=== PATIENT | male | born 1940 | race Caucasian/White ===

== ENCOUNTER 2017-06-23 14:25 | Inpatient (IN) ==
--- OUTSIDE RECORDS SUMMARY | 2017-06-23 15:50 | External Medical Summary | Summary of Care ---
:1940 Author Name Bryant Mena M.D. Address [address] [place] [address] Care Team Providers Name Role Phone Rajesh Carranza, Bryant Unavailable Unavailable Antonio Hirsch Primary Care Provider Unavailable Functional Status Functional Status Health Issues Name Dates Details Functional status health issues are not documented Status: Cognitive Status Health Issues Name Dates Details Cognitive status health issues are not documented Status: Problems Name Dates Details Elevated PSA (790.93, R97.2) Status: Active BPH with obstruction/lower urinary tract symptoms (600.01, N40.1) Status: Active Peyronie disease (607.85, N48.6) Status: Active Medications Name Dates Details Calcium 500 MG Oral Tablet TAKE 1 TABLET DAILY. Refills: 0 Bryant Mena M.D. Started 13-Aug-2015 ActiveCephalexin 500 MG Oral Capsule TAKE 1 CAPSULE 3 TIMES DAILY. Refills: 0 Started 13-Aug-2015 ActiveDialyvite Vitamin D 5000 5000 UNIT Oral Capsule TAKE DIRECTED. Refills: 0 Started 13-Aug-2015 ActiveFlaxseed Oil 1000 MG Oral Capsule TAKE DIRECTED. Refills: 0 Started 13-Aug-2015 ActiveCranberry Concentrate 500 MG Oral Capsule TAKE DIRECTED. Refills: 0 Started 13-Aug-2015 ActiveMagnesium 200 MG Oral Tablet TAKE 1 TABLET DAILY DIRECTED. Refills: 0 Started 13-Aug-2015 ActiveLantus 100 UNIT/ML Subcutaneous Solution INJECT SUBCUTANEOUSLY DIRECTED. Refills: 0 Started 13-Aug-2015 ActiveVitamin C 500 MG Oral Capsule TAKE 1 CAPSULE DAILY. Refills: 0 Started 13-Aug-2015 ActiveAspirin 81 MG Oral Tablet TAKE 1 TABLET DAILY. Refills: 0 Bryant Mena M.D. Started 16-Oct-2015 ActiveProsteon Oral Tablet TAKE 1 TABLET DAILY. Refills: 0 Bryant Mena M.D. Started 16-Oct-2015 Active Allergies and Adverse Reactions Name Dates Details No Known Drug Allergies Status: Active House Dust Status: Active Pollen Status: Active Past Medical History Name Dates Details History of Calcium oxalate crystals in urine (791.9, R82.99) Status: Resolved History of diabetes mellitus (V12.29, Z86.39) Status: Resolved History of malignant neoplasm of pancreas (V10.09, Z85.07) Status: Resolved History of measles (V12.09, Z86.19) Status: Resolved History of mumps (V12.09, Z86.19) Status: Resolved Procedures Procedure Dates Details History of Cholecystectomy History of Proximal Subtotal Pancreatectomy (Whipple Procedure) History of Tonsillectomy PSA ( PROSTATE SPECIFIC ANTIGEN) 3100 Ordered:16-Oct-2015 PSA (Reflex To Free) [id number] Ordered:16-Oct-2015 Immunization Name Dates Details Immunizations not documented Family History Father Name Dates Details Family history of malignant neoplasm of prostate (V16.42, Z80.42) Status: Active Family history of cardiac disorder (V17.49, Z82.49) Status: Active Social History Name Dates Details Smoking StatusNever smoker Vital Signs Date Test Result Details 16-Oct-2015 13:07 BP Systolic 129 mm[Hg] Status: BP Diastolic 70 mm[Hg] Status: Heart Rate 62 /min Status: Height 66 in Status: Weight 145 lb Status: Body Mass Index Calculated 23.4 kg/m2 Status: Body Surface Area Calculated 1.74 m2 Status: Results Date Description Value Details Results not documented Plan of Care Planned Observations Name Dates Details Planned Goals not documented Goal Planned Encounters Appointment; Provider: Bryant Mena On 21-Oct-2016 13:15 Instructions Instructions not documented Encounters Appointment; Bryant Mena On 16-Oct-2015 Encounter Diagnosis: Problem not documented 13:00
--- OUTSIDE RECORDS SUMMARY | 2017-06-23 15:50 | External Medical Summary ---
:1940 Author Organization [employer] Care Team Providers Name Role Phone Antonio Hirsch Provider Role Unavailable Allergies No Known Allergies Problems Problem Type Condition ICD-9 Code Onset Dates Condition Status Assessment Diabetes Mellitus Type 2, not 250.00 Active stated as uncontrolled Problem Diabetes Mellitus Type 2, not 250.00 Active stated as uncontrolled Medications Medication Code System Code Instructions Start Date End Date Status Dosage Vitamin C [facility] 33237-873 500 MG Orally not defined 09 Lantus [facility] 01853-030 100 UNIT/ML 20 units 0-33 Subcutaneous Once a day Prosteon [facility] 51148-940 Orally not defined 02 Vitamin D-3 [facility] 58216-523 5000 UNIT Orally not defined 8-40 Magnesium [facility] 50168-987 200 MG Orally 2 tablets 11 [place] [address] 405 MG Orally not defined 24 Calcium [facility] 43768-337 600-200 MG-UNIT not defined 22 Orally Procedures Procedure Coding System Code Date TSH CPT-4 73244 March 04, 2015 VITAMIN D125 DIHYDROXY CPT-4 66273 March 04, 2015 COMPLETE CBC W/AUTO DIFF WBC CPT-4 25780 March 04, 2015 Results No Known Results Summary Purpose [employer]ClinicalWorks Submission
--- OUTSIDE RECORDS SUMMARY | 2017-06-23 15:50 | External Medical Summary ---
:1940 Author Organization [employer] Care Team Providers Name Role Phone Antonio Hirsch Provider Role Unavailable Allergies No Known Allergies Problems Problem Type Condition Code Onset Dates Condition Status Problem Hyperlipidemia, unspecified E78.5 Active Problem Unspecified anemia 285.9 Active Problem Type 2 diabetes mellitus without E11.9 Active complications Problem Mixed hyperlipidemia 272.2 Active Problem Diabetes Mellitus Type 2, not stated 250.00 Active as uncontrolled Medications No Known Medications Results No Known Results Summary Purpose [employer] Submission
--- OUTSIDE RECORDS SUMMARY | 2017-06-23 15:50 | External Medical Summary ---
:1940 Author Organization [employer] Care Team Providers Name Role Phone Antonio Hirsch Provider Role Unavailable Allergies No Known Allergies Problems Problem Type Condition Code Onset Dates Condition Status Problem Hyperlipidemia, unspecified E78.5 Active Problem Unspecified anemia 285.9 Active Problem Type 2 diabetes mellitus without E11.9 Active complications Assessment Type 2 diabetes mellitus without E11.9 Active complications Problem Mixed hyperlipidemia 272.2 Active Problem Diabetes Mellitus Type 2, not stated 250.00 Active as uncontrolled Medications Medication Code Code Instructions Start End Date Status [place] [address]-59 Orally not defined 002 Calcium NDC 57683-51 600-200 MG-UNIT not defined 122 Orally Cranberry NDC [address]-43 405 MG Orally not defined 224 Lancet Devices ND 0 1 three times December 15, as directed daily. DX: E11.9 2016 to check blood sugar Vitamin D-3 NDC 49925-78 5000 UNIT Orally not defined 78-40 Vitamin C NDC 93160-05 500 MG Orally not defined 509 [place] [address]-36 100U/ML INJECT 20 20-33 UNITS SUB-Q ONCE A DAY. DISCARD VIAL FOLLOWING 28 DAYS OF USE. Magnesium NDC 92006-10 200 MG Orally 2 tablets 611 [place] [address]-36 1 use three November 12, as directed Lancets 86-21 times per day to 2016 check blood sugar, DX: E11.9 [place] [address]-70 100 UNIT/ML 20 units 20-33 Subcutaneous Once a day Procedures Procedure Coding System Code Date URINALYSIS WITH MICROSCOPIC CPT-4 31330 March 19, 2016 COMPLETE CBC W/AUTO DIFF WBC CPT-4 19487 March 19, 2016 HEMOGLOBIN A1C, IN HOUSE CPT-4 33086 March 19, 2016 [facility] MicroAlb/Creat Ratio, Urine CPT-4 18510 March 19, 2016 [facility] MicroAlb/Creat Ratio, Urine CPT-4 20626 March 19, 2016 [facility] LIPID PANEL CPT-4 48587 March 19, 2016 I[facility] CMP CPT-4 50752 March 19, 2016 Results No Known Results Summary Purpose [employer] Submission
--- OUTSIDE RECORDS SUMMARY | 2017-06-23 15:50 | External Medical Summary | Summary of Care ---
:1940 Author Name Bryant Mena M.D. Address [address] [place] [address] Care Team Providers Name Role Phone Rajesh [...] ANTIGEN) 3100 Ordered:16-Oct-2015 PSA (Reflex To Free) [id number] Ordered:16-Oct-2015 Immunization Name Dates Details Immunizations not [...]
--- OUTSIDE RECORDS SUMMARY | 2017-06-23 15:50 | External Medical Summary ---
:1940 Author Organization [employer] Care Team Providers Name Role Phone Antonio Hirsch Provider Role Unavailable Allergies, Adverse Reactions, Alerts Substance Reaction Event Type grass pollen Info Not Available Non Drug Allergy Newspaper Info Not Available Non Drug Allergy dust runny nose Non Drug Allergy Problems Problem Type Condition Code Onset Dates Condition Status Assessment Abnormal results of liver function R94.5 Active studies Assessment Enlarged prostate with lower urinary N40.1 Active tract symptoms Problem Type 2 diabetes mellitus without E11.9 Active complications Problem Hyperlipidemia, unspecified E78.5 Active Problem Type 2 diabetes mellitus with E11.65 Active hyperglycemia Problem Diabetes Mellitus Type 2, not stated 250.00 Active as uncontrolled Assessment Type 2 diabetes mellitus with E11.65 Active hyperglycemia Problem Unspecified anemia 285.9 Active Problem Mixed hyperlipidemia 272.2 Active Medications Medication Code Code Instructions Start End Date Status Dosage System Date Lancet Devices NDC 0 1 three times December 15, as directed daily. DX: E11.9 2016 [place] [address]-38 200 MG Orally 2 tablets 611 [place] [address]-05 1 use three November 12, as directed Lancets 86-21 times per day to 2016 check blood sugar, DX: E11.9 [place] [address]-49 100 UNIT/ML 20 units 20-33 [place] [address]-40 Orally not defined 002 [place] [address] 405 MG Orally not [place] 224 [place] [address]-82 600-200 MG-UNIT not defined 122 [place] [address]-25 500 MG Orally not defined 509 Procedures Procedure Coding System Code Date OFFICE VISIT, EST-LOW COMPLEXITY (15 MIN.) CPT-4 41116 May 07, 2016 [facility] visit Established Patient CPT-4 G0467 May 07, 2016 Vital Signs Date/Time: May 07, 2016 Temperature 98.2 F Height 66.5 in Weight 141.12 lbs Blood Pressure Diastolic 60 mm Hg Blood Pressure Systolic 122 mm Hg Cardiac Monitoring Heart Rate 66 /min BMI 22.43 Index Oximetry 97 % Results No Known Results Summary Purpose eClinicalWorks Submission
--- OUTSIDE RECORDS SUMMARY | 2017-06-23 15:50 | External Medical Summary ---
[...] Date End Date Status Dosage Vitamin C [facility] [place] [address] 500 MG Orally not defined 09 Lantus [facility] [place] 68397-419 100 UNIT/ML 20 units 0-33 Subcutaneous Once a day Prosteon [facility] [place] [address]-671 Orally not defined 02 Vitamin D-3 [facility] [place] [address]-979 5000 UNIT Orally not defined 8-40 Magnesium [facility] [place] [address]-662 200 MG Orally 2 tablets 11 [place] [address] 405 MG Orally not defined 24 Calcium [facility] [place] 69[address]-700 600-200 MG-UNIT not defined 22 Orally Procedures Procedure Coding System Code Date TSH CPT-4 80930 March 04, 2015 VITAMIN D125 DIHYDROXY CPT-4 52443 March 04, 2015 COMPLETE CBC W/AUTO DIFF WBC CPT-4 45686 March 04, 2015 Results No Known Results Summary Purpose eClinicalWorks Submission
--- OUTSIDE RECORDS SUMMARY | 2017-06-23 15:50 | External Medical Summary | Summary of Care ---
:1940 Author Name Bryant Mena M.D. Address [address] [place] [address] Care Team Providers Name Role Phone Rajesh Carranza, Bryant Unavailable Unavailable Antonio Hirsch Unavailable Unavailable Unavailable Unavailable Unavailable Functional Status Functional Status Health Issues Name Dates Details Functional status health issues are not documented Status: Cognitive Status Health Issues Name Dates Details Cognitive status health issues are not documented Status: Problems Name Dates Details Peyronie disease (607.85, N48.6) Status: Active BPH with obstruction/lower urinary tract symptoms (600.01, N40.1) Status: Active Elevated PSA (790.93, R97.20) Status: Active Medications Name Dates Details Calcium 500 MG TABS TAKE 1 TABLET DAILY. Refills: 0 Cho M.D., Bryant Start 13-Aug-2015 Active Dialyvite Vitamin D 5000 5000 UNIT Oral Capsule TAKE DIRECTED. Refills: 0 Start 13-Aug-2015 Active Flaxseed Oil 1000 MG Oral Capsule TAKE DIRECTED. Refills: 0 Start 13-Aug-2015 Active Cranberry Concentrate 500 MG Oral Capsule TAKE DIRECTED. Refills: 0 Start 13-Aug-2015 Active Magnesium 200 MG Oral Tablet TAKE 1 TABLET DAILY DIRECTED. Refills: 0 Start 13-Aug-2015 Active Lantus 100 UNIT/ML Subcutaneous Solution INJECT SUBCUTANEOUSLY DIRECTED. Refills: 0 Start 13-Aug-2015 Active Vitamin C 500 MG Oral Capsule TAKE 1 CAPSULE DAILY. Refills: 0 Start 13-Aug-2015 Active Aspirin 81 MG TABS TAKE 1 TABLET DAILY. Refills: 0 Cho M.D., Bryant Start -Oct-2015 Active Prosteon Oral Tablet TAKE 1 TABLET DAILY. Refills: 0 Cho M.D., Bryant Start 16-Oct-2015 Active Allergies and Adverse Reactions Name Dates Details No Known Drug Allergies (Allergy) Status: Active House Dust (Allergy) Status: Active Pollen (Allergy) Status: Active Past Medical History Name Dates [...] Subtotal Pancreatectomy (Whipple Procedure) History of Tonsillectomy Procedures not documented Immunization Name Dates Details Immunizations not documented Family History Father Name Dates Details Family history of cardiac disorder (V17.49, Z82.49) Status: Active Family history of malignant neoplasm of prostate (V16.42, Z80.42) Status: Active Social History Name Dates Details - Status: Smoking Status Name Dates Details Never smoker Vital Signs Date Test Result Details 21-Oct-2016 13:23 BP Systolic 127 mm[Hg] Status: Comments: Location: ; Position: BP Diastolic 72 mm[Hg] Status: Comments: Location: ; Position: Heart Rate 67 /min Status: Comments: Location: ; Results Date Description Value Details Results not documented Plan of Care Name Dates Details Planned Observations Planned Goals not documented Planned Encounters Appointment; Provider: Bryant Mena M.D. On 26-Oct-2018 13:30 Instructions Name Dates Details Instructions not documented Encounters Appointment; Bryant Mena M.D. On 16-Oct-2015 Encounter Diagnosis: Problem not documented 13:00
--- OUTSIDE RECORDS SUMMARY | 2017-06-23 15:50 | External Medical Summary ---
:1940 Author Organization eClinicalWorks Care Team Providers Name Role Phone Antonio Hirsch Provider Role Unavailable Allergies, Adverse Reactions, Alerts Substance Reaction Event Type grass pollen Info Not Available Non Drug Allergy Newspaper Info Not Available Non Drug Allergy dust runny nose Non Drug Allergy Problems Problem Type Condition ICD-9 Code Onset Dates Condition Status Problem Mixed hyperlipidemia 272.2 Active Problem Diabetes Mellitus Type 2, not 250.00 Active stated as uncontrolled Problem Unspecified anemia 285.9 Active Assessment Mixed hyperlipidemia 272.2 Active Assessment Unspecified anemia 285.9 Active Assessment Diabetes Mellitus Type 2, not 250.00 Active stated as uncontrolled Medications Medication Code System Code Instructions Start Date End Date Status Dosage Calcium [facility] 42089-269 600-200 MG-UNIT not defined 22 Orally Vitamin D-[address] [facility] 586[address]-701 5000 UNIT Orally not defined 8-[address] [facility] 33882-850 200 MG Orally 2 tablets 11 Once a day with a meal Prosteon [facility] 65592-887 Orally not defined [address] [facility] 78333-601 100 UNIT/ML 20 units 0-33 Subcutaneous Once a day Vitamin C [facility] 14[address]-062 500 MG Orally not defined 09 [place] [address] 405 MG Orally not defined 24 Procedures Procedure Coding System Code Date OFFICE VISIT, EST-LOW COMPLEXITY (15 MIN.) CPT-4 43321 March 07, 2015 [facility] visit Established Patient CPT-4 G0467 March 07, 2015 Vital Signs Date/Time: March 07, 2015 Height 66.5 in Weight 141.12 lbs Temperature 98.4 F Blood Pressure Diastolic 80 mm Hg Blood Pressure Systolic 120 mm Hg Cardiac Monitoring Heart Rate 66 /min BMI 22.43 Index Oximetry 96 % Respiratory Rate 16 /min Results No Known Results Summary Purpose eClinicalWorks Submission
--- OUTSIDE RECORDS SUMMARY | 2017-06-23 15:50 | External Medical Summary ---
:1940 Author Organization eClinicalWorks Care Team Providers Name Role Phone Antonio Hirsch Provider Role Unavailable Allergies No Known Allergies Problems Problem Type Condition Code Onset Dates Condition Status Problem Mixed hyperlipidemia 272.2 Active Problem Diabetes Mellitus Type 2, not stated 250.00 Active as uncontrolled Problem Unspecified anemia 285.9 Active Assessment Unspecified anemia 285.9 Active Medications Medication Code System Code Instructions Start Date End Date Status Dosage Cranberry [facility] [address]-904 405 MG Orally not defined 24 [place] [address]-163 5000 UNIT Orally not defined 8-40 Prosteon [facility] 45086-437 Orally not defined 02 Vitamin C [facility] 34231-302 500 MG Orally not defined 09 Magnesium [facility] 22421-077 200 MG Orally 2 tablets 11 Once a day with a meal Lantus [facility] 01077-713 100 UNIT/ML 20 units 0-33 Subcutaneous Once a day Calcium [facility] 71295-962 600-200 MG-UNIT not defined 22 Orally Procedures Procedure Coding System Code Date MicroAlb/Creat Ratio, Urine CPT-4 17448 Sep 02, 2015 MicroAlb/Creat Ratio, Urine CPT-4 63623 Sep 02, 2015 HEMOGLOBIN A1C, IN HOUSE CPT-4 18931 Sep 02, 2015 LIPID PANEL CPT-4 85562 Sep 02, 2015 CMP CPT-4 21592 Sep 02, 2015 Results No Known Results Summary Purpose [employer]ClinicalWorks Submission
--- OUTSIDE RECORDS SUMMARY | 2017-06-23 15:50 | External Medical Summary ---
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 DX E11.9 Aspirin NDC 52310-51 81 MG Orally 1 tablet 805 Once a day Vitamin C NDC 30145-14 500 MG Orally not defined 509 Magnesium NDC 20491-12 200 MG Orally 2 tablets 611 Once a day with a meal Cranberry NDC 74477-14 405 MG Orally not defined 224 Lancet Devices NDC 0 1 three times December 15, as directed daily. DX: E11.9 2016 to check blood sugar Flaxseed Oil NDC 97157-78 1000 MG Orally not defined 97-52 Lantus NDC 50937-19 100 UNIT/ML 20 units 20-33 Subcutaneous Once a day [place] NDC 69[address]-11 1 use three November 12, as directed Lancets 86-21 times per day to 2016 check blood sugar, DX: E11.9 Procedures Procedure Coding System Code Date T3 FREE CPT-4 28233 Jul 30, 2016 T4 FREE CPT-4 76607 Jul 30, 2016 Results Name Result Date Reference Range Unit Abnormality Flag T4 Free ----Free T4 0.9 [id number] 0.7-1.5 ng/dL T3 Free Summary Purpose eClinicalWorks Submission
--- OUTSIDE RECORDS SUMMARY | 2017-06-23 15:50 | External Medical Summary ---
:1940 Author Organization eClinicalWorks Care Team Providers Name Role Phone Antonio Hirsch Provider Role Unavailable Allergies, Adverse Reactions, Alerts Substance Reaction Event Type grass pollen Info Not Available Non Drug Allergy Newspaper Info Not Available Non Drug Allergy dust runny nose Non Drug Allergy Problems Problem Type Condition Code Onset Dates Condition Status Assessment Diabetes Mellitus Type 2, not stated 250.00 Active as uncontrolled Assessment Benign localized hyperplasia of 600.20 Active prostate without urinary obstruction and other lower urinary tract symptoms [LUTS] Problem Diabetes Mellitus Type 2, not stated 250.00 Active as uncontrolled Assessment Unspecified vitamin D deficiency 268.9 Active Assessment Personal history of unspecified V10.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 Medications Medication Code System Code Instructions Start Date End Date Status Dosage Magnesium [facility] 44[address]-325 200 MG Orally 2 tablets 11 Once a day with a meal Prosteon [facility] 06[address]-388 Orally not defined 02 Vitamin D-3 [facility] 41347-693 5000 UNIT Orally not defined 8-40 Cranberry [facility] 910[address]-814 405 MG Orally not defined 24 Calcium [facility] 61826-140 600-200 MG-UNIT not defined 22 Orally Lantus [facility] 29204-017 100 UNIT/ML 20 units 0-33 Subcutaneous Once a day Vitamin C [facility] 16923-455 500 MG Orally not defined 09 Procedures Procedure Coding System Code Date OFFICE VISIT, LOGISTICIAN-LOW COMPLEXITY (20 MIN.) CPT-4 71586 January 31, 2015 [facility] visit New Patient CPT-4 G0466 January 31, 2015 Vital Signs Date/Time: January 31, 2015 Height 66.5 in Weight 144.8 lbs Temperature 98.1 F Blood Pressure Diastolic 82 mm Hg Blood Pressure Systolic 128 mm Hg Cardiac Monitoring Heart Rate 68 /min BMI 23.02 Index Oximetry 97 % Respiratory Rate 16 /min Results No Known Results Summary Purpose eClinicalWorks Submission
--- OUTSIDE RECORDS SUMMARY | 2017-06-23 15:50 | External Medical Summary ---
[...] Medications Results No Known Results Summary Purpose [email or web address] Submission
--- OUTSIDE RECORDS SUMMARY | 2017-06-23 15:50 | External Medical Summary ---
[...] Start Date End Date Status Dosage Vitamin D-3 [facility] 44410-439 5000 UNIT Orally not defined 8-40 Magnesium [facility] 13498-846 200 MG Orally 2 tablets 11 [place] [address] 500 MG Orally not defined 09 Calcium [facility] 25019-553 600-200 MG-UNIT not defined 22 Orally Prosteon [facility] 81233-208 Orally not defined 02 [place] [address] 405 MG Orally not defined 24 Lantus [facility] 28543-360 100 UNIT/ML 20 units 0-33 Subcutaneous Once a day Procedures Procedure Coding System Code Date [facility]H CMP CPT-4 82581 March 04, 2015 MicroAlb/Creat Ratio, Urine CPT-4 81607 March 04, 2015 HEMOGLOBIN A1C, IN HOUSE CPT-4 86752 March 04, 2015 LIPID PANEL CPT-4 84327 March 04, 2015 I[facility] MicroAlb/Creat Ratio, Urine CPT-4 34541 March 04, 2015 Results No Known Results Summary Purpose [employer]ClinicalWorks Submission
--- NOTE | 2017-06-23 16:32 | Emergency Department Report ---
Abdominal Pain HPI - General Chief Complaint: Abdominal Pain Stated Complaint: abd pain ( left) Time Seen by Provider: 06/23/17 14:43 Source: patient Mode of arrival: ambulatory Limitations: no limitations - History of Present Illness HPI narrative: Pt presents with a C/O intermittent LLQ pain for 11 1/2 years. Pt had a whipple procedure then and has since had occasional LLQ pain about 2-3 times a year. Pt states he has been told by other physicians that it could possibly be just from scar tissue. He was admitted the end of April for a viral infection which he did have an abd CT showing a bladder stone he is to have removed tomorrow however no findings as to why he could be having this pain. Pt reports pain usually does not last long and although instructed to come to the emergency room when it occurs living 30 miles away pain is usually resolved by the time he arrives. Onset (ago): year(s) Consistency: intermittent Location: LLQ Severity: mild Quality: aching Radiation: none Migration to: no migration Relieving factors: other (massage) Exacerbating factors: nothing - Related Data Home Medications Medication Instructions Recorded Confirmed Insulin Glargine,Hum.rec.anlog 10 - unit SQ HS #0 02/03/10 06/23/17 [Lantus] Cristian Cit/D3/K/Mag Ox/Stron/Bor 1 tab PO DAILY #0 06/27/13 06/23/17 [Prosteon Tablet] Ascorbate Calcium [Vitamin C] 500 mg PO DAILY 06/23/17 06/23/17 Aspirin [Lo-Dose Aspirin EC] 81 mg PO DAILY 06/23/17 06/23/17 Calcium Carbonate/Vitamin D3 1 tab PO DAILY 06/23/17 06/23/17 [Calcium 600-Vit D3 200 Tablet] Cranberry Fruit Extract [Cranberry] 405 mg PO DAILY 06/23/17 06/23/17 Digestive 8/L.acidoph/Pectin 1 tab PO BID 06/23/17 06/23/17 [Digestive Enzymes Tablet] Flaxseed Oil 1,000 mg PO DAILY 06/23/17 06/23/17 Magnesium 400 mg PO DAILY 06/23/17 06/23/17 Ubidecarenone/Vit E Acet [Co Q-10 100 mg PO DAILY 06/23/17 06/23/17 100 mg Softgel] Allergies Allergy/AdvReac Type Severity Reaction Status Date / Time No Known Drug Allergies Allergy Unknown Verified 06/23/17 15:06 Review of Systems All systems: reviewed and negative except as stated Constitutional: Denies: fever, chills Cardiovascular: Denies: chest pain, palpitations Respiratory: Denies: cough, dyspnea Gastrointestinal: Reports: abdominal pain. Denies: nausea, vomiting, diarrhea Genitourinary: Denies: urgency Neurological: Denies: headache Psychiatric: Denies: anxiety PFSH Patient Stated Medical History Diabetes Mellitus Type 1 Yes - Social History Smoking status: Never smoker Physical Exam - Limitations Limitations: no limitations - General General appearance: alert, in no apparent distress - Normal Exams: Neck:: Full range of motion, without adenopathy Chest/Respirations:: Clear all murphy, with good airflow, and symmetry bilaterally Cardiovascular:: Regular rate and rhythm, without murmur or gallop, Pulses 2+ all extremities Abdomen:: Bowel sounds positive, soft, non-tender, non-distended Lymphatic:: No lymphadenopathy Integumentary:: No rashes, hives Neurological:: Patient is alert, and oriented, cranial nerves Psychiatric:: Patient exhibits, appropriate attention, emotion and affect Course Vital Signs Temperature 97.8 F 06/23/17 14:36 Pulse Rate 63 06/23/17 14:36 Respiratory Rate 20 06/23/17 14:36 Blood Pressure 163/80 H 06/23/17 14:36 Pulse Oximetry 100 06/23/17 14:36 Temperature 97.8 F 06/23/17 14:36 Pulse Rate 63 06/23/17 14:36 Respiratory Rate 20 06/23/17 14:36 Blood Pressure 163/80 H 06/23/17 14:36 Pulse Oximetry 100 06/23/17 14:36 Abdominal Pain - MDM Narrative Medical decision making narrative: Labs and CT reviewed. Results discussed with Dr Dean and the patient. Pt to follow up with Dr Dean in 2 days for continued diagnostics for elevated LFTs. Current labs are nor far from previous when reviewed leading to consistent abnormal results with the exception of LFTs. All findings discussed with pt, family, and Dr Dean - Differential Diagnosis Differential diagnosis: Likely: abdominal pain, acute appendicitis, constipation , diverticulitis - Lab Data Attestation: I reviewed the patient's lab results. Result diagrams: 06/23/17 15:48 06/23/17 15:48 Lab Results 06/23/17 06/23/17 06/23/17 Range/Units 15:48 15:48 15:49 WBC 13.2 H (4.5-11.0) T/MM3 RBC 4.94 (4.50-5.90) M/MM3 Hgb 14.7 (13.5-17.5) GM/DL Hct 42.1 (41-53) % MCV 85.2 (80-100) UM3 MCH 29.8 (26-34) UUG MCHC 34.9 (31-37) GM/DL RDW Std Deviation 37.2 (36.9-50.2) FL Plt Count 234 (130-400) T/MM3 MPV 9.4 (9.4-12.4) UM3 Immature Gran % (Auto) Not performed Neut % (Auto) Not performed Lymph % (Auto) Not performed Emmons % (Auto) Not performed Eos % (Auto) Not performed Baso % (Auto) Not performed Neut # (Auto) Not performed Lymph # (Auto) Not performed Emmons # (Auto) Not performed Eos # (Auto) Not performed Baso # (Auto) Not performed Abs Immat Gran (auto) Not performed Turbidity < 20 (0-20) Sodium 141 (134-144) MEQ/L Potassium 4.2 (3.6-5) MEQ/L Chloride 101 (98-107) MEQ/L Carbon Dioxide 30 (22-30) MEQ/L Anion Gap 10 (5-15) MEQ/L BUN 12.0 (9-20) MG/DL Creatinine 0.8 (0.8-1.5) MG/DL GFR Calculation 94 BUN/Creatinine Ratio 15 (6-26) RATIO Glucose 175 H (75-110) MG/DL Calculated Osmolality 275 (261-280) MOSM/KG Calcium 9.5 (8.4-10.2) MG/DL Total Bilirubin 1.90 H (0.20-1.30) MG/DL Conjugated Bilirubin 0.00 (0.00-0.30) MG/DL Unconjugated Bilirubin 1.10 (0.00-1.1) MG/DL Icterus Index < 2 (0-7) AST 444 H (17-59) U/L ALT 208 H (21-72) U/L Alkaline Phosphatase 134 H (38-126) U/L Total Protein 8.0 (6.3-8.2) G/DL Albumin 4.5 (3.5-5.0) G/DL Globulin 3.5 (2.4-3.6) G/DL Albumin/Globulin Ratio 1.3 (1.1-2.2) RATIO Specimen Hemolysis < 15 (0-25) Ur Collection Type Urine, clean catch Urine Color Yellow (YELLOW) Urine Clarity Clear Urine pH 8.5 A (5.0-8.0) Ur Specific Peebles 1.020 (1.015-1.025) Urine Protein Trace A (NEGATIVE) Urine Glucose (UA) Negative (NEGATIVE) Urine Ketones Trace A (NEGATIVE) Urine Occult Blood Negative (NEGATIVE) Urine Nitrate Negative (NEGATIVE) Urine Bilirubin Negative (NEGATIVE) Urine Urobilinogen 1.0 (NORMAL) EU/DL Ur Leukocyte Esterase Negative (NEGATIVE) - Radiology Data Attestation: I reviewed the patient's radiology results. (CT per Vrad) Disposition Clinical Impression: Elevated liver enzymes Abdominal pain Qualifiers: Abdominal location: left lower quadrant Qualified Code(s): R10.32 - Left lower quadrant pain Disposition: Discharged Home, Self-Care Condition: Improved Instructions: Acute Abdominal Pain (ED) Additional Instructions: Make appointment to follow up with Dr Dean on wednesday. Prescriptions: No Action Ascorbate Calcium [Vitamin C] 500 mg PO DAILY Digestive 8/L.acidoph/Pectin [Digestive Enzymes Tablet] 1 tab PO BID Aspirin [Lo-Dose Aspirin EC] 81 mg PO DAILY Magnesium 400 mg PO DAILY Flaxseed Oil 1,000 mg PO DAILY Insulin Glargine,Hum.rec.anlog [Lantus] 10 - 17 unit SQ HS #0 Cristian Cit/D3/K/Mag Ox/Stron/Bor [Prosteon Tablet] 1 tab PO DAILY #0 Calcium Carbonate/Vitamin D3 [Calcium 600-Vit D3 200 Tablet] 1 tab PO DAILY Ubidecarenone/Vit E Acet [Co Q-10 100 mg Softgel] 100 mg PO DAILY Cranberry Fruit Extract [Cranberry] 405 mg PO DAILY Referrals: Antonio Hirsch DO [Family Provider] - Time of Disposition: 19:09 - Seen By: midlevel
[2017-06-23] MEDS ORDERED: IOHEXOL 300mg/ml 100ml INJECTION ONE (16:54)
[2017-06-23] MEDS ORDERED: SALINE FLUSH 10ml SYRINGE ONE ×2 (16:54→17:13)
[2017-06-23] MEDS ORDERED: NS 100 ML ONE (16:54)
[2017-06-23] MEDS ORDERED: ONDANSETRON 4 MG/2 ML INJECTION IVP ONE (19:37)
[2017-06-23] MEDS: NS 1,000 ML IV SCH (20:26)
[2017-06-23 21:22] VITALS: BMI 21.2
[2017-06-23] MEDS ORDERED: DEXTROSE 50% SYRINGE 50ml (1 AMP) IVP PRN (21:33)
[2017-06-23] MEDS ORDERED: GLUCOSE ORAL GEL 40% 37.5gm PO PRN (21:33)
[2017-06-23] MEDS ORDERED: ONDANSETRON 4 MG/2 ML INJECTION IVP PRN (22:10)
--- NOTE | 2017-06-23 22:14 | History & Physical Report ---
History of Present Illness Date: 06/24/17 Chief complaint: acute hepatitis, fever, nausea, abdominal pain. HPI: patient is a pleasant 76yo male known to our clinic. he has a known history of pancreatic cancer diagnosed and treated 11 years ago with a whipple procedure. he was in his usual state of health most recently until about 9AM this morning. it was at this time he started in with epigastric and LUQ abdominal pain. dull in nature and it did radiate to the back. he developed nausea and had X1 episode of vomitus. he had fevers and chills and rigors. this persistent and he was seen in the ER earlier today for this. in the ER he had a cbc which showed a wbc count of about 13,000 with 14% bands and was otherwise unremarkable. CXR was unremarkable with final report pending. cmp showed an AST in the 400's and ALT in the 200's with an alk phos of about 135. the cmp was otherwise unremarkable. vitals were stable at that time. a CT abdomen/ pelvis was done and it showed a few areas of mildly dilated small bowel and a chronic bladder stone and was otherwise unremarkable. UA in the ER was unremarkable. he was given IV fluids and IV zofran in the ER and he was feeling better. just before discharge form the ER he had an episode of fever up to 102, rigors and chills. he had another episode of nausea and vomiting X1. it was opted to admit him based on these issues. he was admitted to [facility] under observation status. currently pain is pain free. he is fatigued form the days ordeal. he is afebrile at this time and actually feels a bit hungry. no nausea or vomiting at this time. vitals are stable otherwise. present for most of encounter today. ROS positive for fevers, chills and rigors above. no headaches, vision changes , URI symptoms, ear pain, sinus pain, sore throat. no fatigue before all this. doesn't feel weak. no rashes or skin changes. no body or joint aches. no muscle or joint weakness or swelling. no face swelling, falls, trauma, injuries , dizziness, syncope. appetite has been good lately. he's been able to undergo his usual activity of late. no unintentional weight loss although it is hard to keep his weight up with the whipple. no recent travel out of the country, camping, sick exposures, potter exposures. no undercooked food and ROS negative for food borne illness and risk factors thereof. no chest pain, SOA, orthopnea, PND, edema, leg asymmetry. no chest pain or SOA on exertion. no changes in exertional tolerance. no alcohol use, tylenol use, NSAID use, IV drug use. food doesn't seem to have any bearing on the symptoms above. no palpitations. no new supplament use over the counter and his med list has been stable and unchanged for years. no cough, sputum production, hemoptysis, URI symptoms. no abdominal pain otherwise. no hematemesis, coffee ground emesis, melena, BRBPR, GERD symptoms. his stools have been no more loose than usual since his whipple procedure. no diarrhea, constipation. last BM was a couple of hours ago in the ER and was normal per patient. passing flatus normally. ROS negative for altered mentation, delerium, elisa, depression, anxiety, encephalopathy, meningitis, photophobia. no blackouts. he was set to have a bladder stone removed tomorrow and has had some cystoscopies of late and initially had some urethral irritation from this but this has resoled. no dysuria, hematuria, urinary frequency, flank pain, nocturia, abdominal distension, ascites. no urinary/bowel incontinance. no changes in urinary stream. no oliguria or polyuria. no perineal pain or prostatitis symptoms. patient did have similar symptoms about 6 weeks ago except without the elevated LFT's. these symptoms resolved completely after a couple of days. see notes in EMR from that ER visit as well as clinic notes for more information on this. see above and below for other ROS. Review of Systems - Constitutional Constitutional: Present: as per HPI - EENMT Eyes: Present: as per HPI Ears: Present: as per HPI Balance: Present: as per HPI Nose: Present: as per HPI Mouth/Throat: Present: as per HPI - Cardiovascular Cardiovascular: Present: as per HPI Rhythm: Present: regular rhythm Vascular: Present: see HPI Cardiovascular Comments: no edema or leg asymmetry. - Respiratory Respiratory: Present: as per HPI - Gastrointestinal Gastrointestinal: Present: as per HPI - Genitourinary Genitourinary: Present: as per HPI - Musculoskeletal Musculoskeletal: Present: as per HPI - Integumentary/Breasts Integumentary: Present: as per HPI - Neurological Neurological: Present: as per HPI Neurological Comments: no focal neurologic deficits, seizure symptoms, stroke symptoms, meningitis symptoms, photophobia. - Psychiatric Psychiatric: Present: as per HPI - Endocrine Endocrine: Present: as per HPI - Hematologic/Lymphatic Hematologic/Lymphatic: Present: as per HPI - Allergic/Immunologic Allergic/Immunologic: Present: as per HPI (see above for allergies and ADR's. ) [facility] Patient Stated Medical History Diabetes Mellitus Type 1 Yes Blood Transfusions Yes: no reactions reported Chemotherapy Yes: past for pancreatic cancer -BPH Surgical History: -tonsillectomy. -cholecystectomy. -whipple procedure. - left leg splinter removal. -colonoscopy in 2012, reportedly normal and one not recommeded again until 2022. -EGD in 2013 Family History: -father at age 85 -daughter is alive -son is alive -mother at age 87 - Social History Smoking status: Never smoker Social history: -no tobacco use -no significant alcohol use -no illicit drugs use -lives at home with -is retired also Medications Home Medications Medication Instructions Recorded Confirmed Type Insulin Glargine,Hum.rec.anlog unit SQ HS #0 02/03/10 06/23/17 History [Lantus] Cristian Cit/D3/K/Mag Ox/Stron/Bor 1 tab PO DAILY #0 06/27/13 06/23/17 History [Prosteon Tablet] Ascorbate Calcium [Vitamin C] 500 mg PO DAILY 06/23/17 06/23/17 History Aspirin [Lo-Dose Aspirin EC] 81 mg PO DAILY 06/23/17 06/23/17 History Calcium Carbonate/Vitamin D3 1 tab PO DAILY 06/23/17 06/23/17 History [Calcium 600-Vit D3 200 Tablet] Cranberry Fruit Extract [Cranberry] 405 mg PO DAILY 06/23/17 06/23/17 History Digestive 8/L.acidoph/Pectin 1 tab PO BID 06/23/17 06/23/17 History [Digestive Enzymes Tablet] Flaxseed Oil 1,000 mg PO DAILY 06/23/17 06/23/17 History Magnesium 400 mg PO DAILY 06/23/17 06/23/17 History Ubidecarenone/Vit E Acet [Co Q-10 100 mg PO DAILY 06/23/17 06/23/17 History 100 mg Softgel] Allergies Allergy/AdvReac Type Severity Reaction Status Date / Time No Known Drug Allergies Allergy Unknown Verified 06/23/17 15:06 Exam Vital Signs: Temperature 101.0 F H 06/23/17 21:02 Pulse Rate 89 06/23/17 21:02 Respiratory Rate 18 06/23/17 21:02 Blood Pressure 117/69 06/23/17 21:02 Pulse Oximetry 94 06/23/17 21:02 Telemetry Rhythm: Sinus Rhythm Height/Weight/BMI: Height 1.68 m Weight 59.8 kg Body Mass Index 21.2 - Constitutional Present: no acute distress, average body habitus, cooperative Comments: no diaphoresis. not combative. - Routine HEENT Exam Head: Present: normocephalic, atraumatic ENT: Present: mucous membranes dry (mucous membranes mildly dry. ), oropharynx clear, dentition normal Comments: no sinus pain b/l at this time. - Routine Neck Exam Present: supple, trachea midline Comments: no JVD. no lymphadenopathy in head/neck/supraclavicular area b/l at this time. thyroid normal. trachea midline. no photophobia. no clinical evidence of meningioencephalitis at this time. - Routine Chest/Breast/Axilla Exam Comments: no tenderness over chest wall. - Routine Respiratory Exam Comments: LCTAB. no crackles, wheezes, rales. lung sounds heard in all lung murphy b/l at this time. moving air well. no respiratory distress, retractions, accessory muscle use, stridor, airway compromise. - Routine Cardiovascular Exam Present: RRR, no murmur Comments: no stigmata of heart failure. pulses normal in all 4 extremities b/l at this time. extremities warm and clinically well perfused in all 4 extremities b/l at this time. - Routine Abdominal Exam Present: soft (X4.), normoactive bowel sounds (X4.), non distended (X4.), non tender (X4.) Comments: no rebound, guarding, rigidity, splenomegally, hepatomegally, pulsations, masses. no fluid wave, ascites, jaundice. no stigmata of acute liver failure. - Routine Exam Comments: no tenderness over bladder area. no flank pain b//l at this time. - Routine Extremities Exam Comments: no boggy or inflamed joints b/l in extremities X4. no edema bilaterally. no pallor or cyanosis. no swollen/red or excessively warm joints. - Routine Back/Spine/Pelvis Exam Comments: see above. - Routine Skin Exam Present: intact Comments: no clinical evidence of rash or skin/soft tissue infection or other new or changing skin abnormality form previous baseline at this time. - Routine Neurological Exam alert and oriented X3. no clinical evidence of altered mentation/sensorum, delerium, elisa, depression, anxiety, psyhosis. affect and cognition unchanged from patient's usual baseline. no clinical evidence of encephalopathy at this time. PERRLA. EOMI. no nystgmus. no stigmata of acute liver failure. - Routine Psychiatric Exam Present: normal affect, normal thought process, good insight, good judgment Comments: see above. no changes from previous baseline. patient denies homicidal/ suicidal ideations. Results - Labs CBC & Chem 7: 06/23/17 15:48 06/23/17 22:24 Assessment and Plan DVT Prophylaxis: SCD's GI Prophylaxis: Protonix Resuscitation Status: Full Code Assessment and Plan: acute hepatitis of uncertain etiology with paroxysms of abdominal pain, nausea, vomiting, fevers mild dilated loops of small bowel on CT scan and likely mild ileus leukocytosis secondary to the above. T1DM history of pancreatic cancer s/p whipple procedure -admit to outpatient, routine vitals with call parameters, telemetry, oxygen as needed, I's and O's, daily weights, up with assist only, NPO for now. -cmp, follow troponins with call parameters, INGRID, ceruloplasmin, acute hepatitis panel, crp, coags, ck, mg, phos, iron studies, ferritin, tylenol level, salicylate level, ammonia, lactic acid now. fractionate bilirubin. check blood cx X2. check CMV and EBV serologies. check mono. see above for other testing and results thus far from this stay. -RUQ ultrasound of abdomen with dopplar now. EKG now. -cbc, cmp, TSH, troponin, peripheral smear in the AM. -IV normal saline at 150ml/hr. hold lantus given NPO. follow GLUBS. start hypoglycemia protocol. start low dose novolog s/s. continue home ASA for now. hold home supplaments except for home digestive enzymes. start IV zofran prn. -further management pending the above. bladder stone -follows with urology as outpatient. -not an acute issues all other chronic medical issues stable and no changes to plan of care at this time. ppx -SCD's for DVT ppx. given likely short length of stay the risks of pharmacologic DVT prophylaxis likely outweight benefits pending the above studies. -IV protonix while patient NPO. -FULL CODE -dispo---------heavily dependent on the above. - - Time spent with patient Time with patient PN: 50 minutes Sepsis Assessment - Evaluation Confirmed Suspected Infection: No SIRS Criteria: temperature > or equal to 100.4, WBC > or equal to 12,000, Bands > or equal to 10%
[2017-06-24] MEDS: NS 1,000 ML IV SCH ×3 (02:55→14:48)
--- NOTE | 2017-06-24 08:08 | XRay Report ---
INDICATION: fever PROCEDURE: CHEST 2-VIEWS UPRIGHT (PA & LAT) Encounter: Initial COMPARISON: May 06, 2017 FINDINGS: The lungs are clear without evidence of focal abnormal airspace opacity. There is no pleural effusion or pneumothorax. The heart size, mediastinal contours and pulmonary vascularity are within normal limits. There is no significant skeletal abnormality. IMPRESSION: No acute cardiopulmonary disease. .
--- NOTE | 2017-06-24 08:16 | CT Scan Report ---
Indication: history of whipple, llq pain, elevated wbc and bandemia PROCEDURE: CT abdomen pelvis w con: Encounter: Initial Comparison: May 06, 2017 Technique: Axial CT images were performed through the abdomen and pelvis after the administration of intravenous contrast. Coronal and sagittal two-dimensional reformats. Automated Exposure Control and Iterative Reconstruction dose reducing techniques were utilized. Contrast: Omnipaque 300 65 mL Findings: The lung bases are clear. Postoperative changes from prior Whipple procedure. No enhancing liver mass or gross bile duct dilatation. The spleen is unremarkable. Adrenal glands and kidneys are stable. No hydronephrosis. No abscess or inflammation seen in the mesentery. The appendix is normal. Large stone again seen in the bladder. Prostate is severely enlarged. No free fluid. No evidence of a bowel obstruction. Fluid-filled nondilated loops of small bowel. Bowel anastomoses. Bone windows are stable. Impression: Stable exam without evidence of acute disease process. There is a preliminary report by [facility]. .
--- NOTE | 2017-06-24 08:18 | Ultrasound Report ---
Indication: elevated LFT's PROCEDURE: US abdomen limited: Encounter: Initial Comparison: CT abdomen and pelvis from the same date Technique: Grayscale and color Doppler sonographic imaging of the right upper quadrant of the abdomen was performed. Findings: Hepatic parenchyma is homogeneous without evidence for focal mass. Appropriate flow direction and velocity in the portal vein. The gallbladder is surgically absent. Extrahepatic common duct up to 11 mm in diameter, likely related to the prior surgery. No evidence of intrahepatic bile duct dilatation. Prior Whipple procedure. Visualized remaining portions of the pancreas are unremarkable. The right kidney is present without collecting system dilatation. The right kidney measures 10.5 cm in length. Impression: No evidence of intrahepatic bile duct dilatation or portal vein thrombosis. There is a preliminary report by [facility]. .
[2017-06-24] MEDS ORDERED: [UNRECOGNIZED DRUG - OTHER] PO SCH (09:00)
[2017-06-24] MEDS ORDERED: PANTOPRAZOLE 40 MG INJECTION IVP SCH (09:00)
[2017-06-24] MEDS ORDERED: DIGESTIVE PO SCH (09:00)
[2017-06-24] MEDS: CALCIUM 500 + VIT D 200 TABLET PO SCH ×2 (10:01→21:11)
[2017-06-24] MEDS: SALINE FLUSH 10ml SYRINGE IVF PRN (10:01)
[2017-06-24] MEDS: ASPIRIN *EC* 81 MG TABLET PO SCH (10:01)
[2017-06-24] MEDS: PIPERACILLIN/TAZOBACTAM 3.375 GM in NS 100 ML IV SCH ×2 (14:46→21:13)
[2017-06-24] MEDS ORDERED: POTASSIUM PHOSPHATE IV SCH (16:15)
[2017-06-24] MEDS ORDERED: NS IV SCH (16:15)
--- NOTE | 2017-06-24 16:52 | General Surgery Consult Note ---
Consult date: 06/24/17 Attending Physician: Antonio Hirsch DO Reason for consult: abdominal pain (history of Wipple 2004) PFSH Pancreastic cancer 2004 Bladder stone BPH DM surgically induced post Wipple Surgical History: -tonsillectomy. -cholecystectomy [place]. -whipple procedure 2004 T[place]. -left leg splinter removal. -colonoscopy in 2012, reportedly normal and one not recommeded again until 2022 Td. -EGD in [place], Wipple anastamosis site with gastritis and hemorrhage [place]. Family History: Father - CAD Mother - HTN, CAD, DM - Social History Smoking status: Never smoker Previous occupational history: [employer] Medications Home Medications Medication Instructions Recorded Confirmed Type Insulin Glargine,Hum.rec.anlog unit SQ HS #0 02/03/10 06/23/17 History [Lantus] Cristian Cit/D3/K/Mag Ox/Stron/Bor 1 tab PO DAILY #0 06/27/13 06/23/17 History [Prosteon Tablet] Ascorbate Calcium [Vitamin C] 500 mg PO DAILY 06/23/17 06/23/17 History Aspirin [Lo-Dose Aspirin EC] 81 mg PO DAILY 06/23/17 06/23/17 History Calcium Carbonate/Vitamin D3 1 tab PO DAILY 06/23/17 06/23/17 History [Calcium 600-Vit D3 200 Tablet] Cranberry Fruit Extract [Cranberry] 405 mg PO DAILY 06/23/17 06/23/17 History Digestive 8/L.acidoph/Pectin 1 tab PO BID 06/23/17 06/23/17 History [Digestive Enzymes Tablet] Flaxseed Oil 1,000 mg PO DAILY 06/23/17 06/23/17 History Magnesium 400 mg PO DAILY 06/23/17 06/23/17 History Ubidecarenone/Vit E Acet [Co Q-10 100 mg PO DAILY 06/23/17 06/23/17 History 100 mg Softgel] Allergies Allergy/AdvReac Type Severity Reaction Status Date / Time No Known Drug Allergies Allergy Unknown Verified 06/23/17 15:06 Review of Systems 10-point ROS: negative except for HPI and the following: - General General: Present: fever, chills - Gastrointestinal Gastrointestinal: Present: nausea, vomiting, other (abd pain) - Vital Signs Last Vital Signs Temp 97.8 F 06/24/17 15:57 Pulse 64 06/24/17 15:57 Resp 18 06/24/17 15:57 BP 120/65 06/24/17 15:57 Pulse Ox 99 06/24/17 15:57 - Laboratory Result Diagrams: 06/24/17 02:14 06/24/17 02:14 Hospital Course Summary Disclaimer: The visit summary below is not to be considered part of the above Progress Note.
[2017-06-24] MEDS: INSULIN ASPART 100unit/ml INJECTION SQ PRN (17:07)
--- NOTE | 2017-06-24 20:24 | Consultation ---
DATE OF CONSULTATION 06/24/2017 FINDINGS Mr. Leyva is a 76-year-old gentleman whom I was asked to see this afternoon as a result of his history for intermittent abdominal pain. The patient has somewhat of a unique history that in 2004 he had undergone a pancreaticoduodenectomy for pancreatic cancer. Patient informs me that he did have to undergo a "repeat surgery" about three weeks after his initial surgery. Patient states that his "stomach was not draining correctly" and that the "hookup had to be revised." Patient states that about three months after undergoing a Whipple he developed severe pain within his left upper quadrant. Patient states that he has had this intermittent left upper quadrant pain now over the course of the last 11-12 years. Usually this pain only occurs a few times a year per his report. The patient states that typically the pain is very severe but will only last for about 5-10 minutes in duration and then will resolve. Patient states that recently he has had increasing frequency of this severe left upper quadrant abdominal pain and that the pain has lasted longer in its duration. Patient states that about six weeks ago he had developed once again this severe pain within his left upper quadrant. This time the pain lasted for several hours in duration. Patient states that he developed "shaking chills" for a good period of time after the onset of this pain. Patient states that he had checked his temperature and it was not elevated when he was having these "shaking chills." The patient states that after the chills subsided he then rechecked his fever and it was markedly elevated to 103. The patient states that typically in the past when he had this severe pain that after its resolution he would "feel fine." Patient states that over the last two episodes he has felt very weak and tired for several days after the resolution of his pain. Patient states that he was scheduled to undergo extraction of a recently discovered urinary bladder stone. In fact, he states that he was "scheduled today." The patient had unfortunately developed another severe onset of abdominal pain within his left upper quadrant associated with fever and chills. He has been subsequently added to the hospital for further care. This evening on rounds when the patient was seen he stated that the abdominal pain has resolved at this time and he is feeling well. He still has a slight element of abdominal tenderness. The patient states that he does have a component of some nausea during these episodes of pain. Patient states at times he will "make himself vomit." He really denies any specific aggravating symptomatology in regards to the onset of this pain. Patient states that sometimes the pain occurs after eating and other times it may occur sporadically "in the middle the night." The patient has done remarkably well in regards to his prior diagnosis of pancreatic cancer. He has been without any evidence for recurrence. PAST MEDICAL HISTORY, PAST SURGICAL HISTORY, MEDICATIONS, ALLERGIES, SOCIAL HISTORY, FAMILY HISTORY, REVIEW OF SYSTEMS Performed by my nurse practitioner, Craig Jewell APRN. PHYSICAL EXAMINATION GENERAL: Mr. Leyva is a 76-year-old gentleman who was seen this evening and did not appear to be in any discomfort or distress. VITAL SIGNS: Temperature 97.8, pulse 64, respirations 18, blood pressure 120/65 , SAO2 99% on room air. HEENT: Normocephalic. Pupils are equally round and react to light and accommodation. NECK: Supple without lymphadenopathy. CHEST: Clear to auscultation bilaterally. HEART: Regular rate and rhythm. Normal S1 and S2 without gallops, murmurs or clicks. ABDOMEN: Visualization of the abdomen reveals it to be fairly scaphoid in its appearance. The patient has a well-healed prior midline incision. Palpation of the abdomen did not reveal any element of tenderness this evening. I do not appreciate any evidence for hepatomegaly or other abnormal masses. LABORATORY/RADIOGRAPHIC EVALUATION The patient had a CBC yesterday upon admission. His white count was 13.2. Hemoglobin is 14.7. He did have a left shift with 14% bands. The patient was appropriately begun on empiric antibiotics and his white count today is 14,000. His bandemia has improved to 9% but he still has a left shift with 81% neutrophils as well. CMP was obtained yesterday as well as today. His liver function tests were found to be elevated. His AST was 202. ALT was 157. Alkaline phosphatase was 100. Total bilirubin was normal at 1.2. Today his liver function tests have improved and his AST and ALT are 152 and 139 , respectively. Patient has undergone CMV titers as well as hepatitis serology which is pending. He did undergo a mono screen which was negative. HIV was obtained and found to be negative. The patient underwent a CT scan of his abdomen and pelvis yesterday. CT scan did not reveal any evidence for biliary dilatation. There were postoperative changes consistent with his prior history for pancreaticoduodenectomy/Whipple procedure. He was found have a bladder stone. Prostate was found to be "severely enlarged." Loops of small bowel were found to be fluid-filled but not dilated in nature. Scattergram on the CT scan did not reveal any obstructive pattern. I did review the CT scan personally. The patient did undergo EGD approximately a year ago. This was performed by Dr. Trimble. There was some inflammation noted at the prior gastrojejunal anastomosis. Patient had undergone prior colonoscopy in 2012 that was normal. ASSESSMENT 76-year-old gentleman with personal history for pancreatic cancer, status post pancreaticoduodenectomy in 2004. Patient with history of intermittent left upper quadrant abdominal pain of uncertain etiology. Patient with recent onset of fever, chills, leukocytosis and bandemia indicative of infection. PLAN At this point in time the patient does not have an acute surgical abdomen. I am somewhat "mystified" in regards to the underlying etiology for his intermittent abdominal pain. One would think if he has a component of biliary obstruction resulting in increasing of his liver function tests and a component of ascending cholangitis, one would see biliary dilatation radiographically. As stated previously, there is no evidence for biliary dilatation upon recent CT scan. The patient's lipase was normal at 74 upon admission. I thought perhaps he could have a stricture of his pancreaticojejunal anastomosis resulting in a component of pancreatitis. Normal lipase would again not be indicative for intermittent pancreatitis. At this point in time I do not have a good explanation for his intermittent abdominal pain, fever and leukocytosis. Will continue to follow along in the patient's care. Will proceed with some additional "contemplation"" in regards to the underlying etiology for his intermittent abdominal pain. One perhaps may wish to obtain an upper GI and small-bowel follow-through to document that there is no element of stricture. Again, one would think there would be a component of bowel distention noted upon radiographic evaluation if indeed we are dealing with partial small-bowel obstruction process. [facility]
--- NOTE | 2017-06-24 20:53 | Progress Note ---
Subjective: symptomatically patient doing well today. no fevers since last night in the ER. no chills, rigors. no abdominal pain, nausea, vomiting since our last visit together. no headaches, stroke symptoms, syncope, dizziness, fatigue, weakness, vision changes, URI symptoms, focus of infection, sinus symptoms, falls, trauma, injuries. no chest pain, SOA, orthopnea, PND, edema, leg asymmetry. no palpitations, cough, sputum production. no hemoptysis. no abdominal pain, hematemesis, coffee ground emesis, melena, BRBPR, GERD symptoms , abdominal distension. no diarrhea. hasn't had BM since the ER yesterday but has only been here a few hours. denies constipation. passing flatus normally. no dysuria, hematuria, urinary frequency, flank pain, nocturia, urinary/bowel incontinance, other urinary symptom/changes. no mood changes or depression symptoms. no skin changes, cellulitis symptoms, new rashes. no events called on telemetry. patient's present for most of encounter today. no new issues otherwise at this time. Objective Vital signs: Temperature 97.8 F 06/24/17 15:57 Pulse Rate 64 06/24/17 16:02 Respiratory Rate 18 06/24/17 15:57 Blood Pressure 120/65 06/24/17 15:57 Pulse Oximetry 99 06/24/17 15:57 Rhythm: Normal Sinus Rhythm - Constitutional Present: no acute distress (patient is not ill appearing. ), average body habitus, cooperative. Absent: cachectic, diaphoretic, disheveled, combative, agitated, somnolent, obtunded - Routine HEENT Exam Head: Present: normocephalic, atraumatic ENT: Present: mucous membranes moist - Routine Respiratory Exam Present: CTA bilaterally. Absent: accessory muscle use, patient mechanically ventilated, dyspnea, decreased breath sounds, prolonged expiratory phase, rales , respiratory distress, rhonchi, stridor, wheezes, crackles, distant breath sounds, diminished air movement Comments: no changes from yesterday's encounter. - Routine Cardiovascular Exam Present: RRR, no murmur. Absent: murmur, gallop, bradycardia, tachycardia, irregular rhythm, irregularly irregular, JVD - Routine Abdominal Exam Present: soft (X4.), normoactive bowel sounds (X4.), non distended (X4.), non tender (X4.). Absent: tenderness (X4.), distended (X4.), rebound, guarding, firm, rigid, organomegaly, mass Comments: no distension, ascites, jaundice. - Routine Extremities Exam Absent: cyanosis, edema, tenderness, pallor, extremity cold to touch Comments: no LE edema bilaterally at this time. legs symmetrical and compartments soft b/ l at this time. extremities warm and clinically well perfused in all 4 extremities b/l at this time. - Routine Musculoskeletal Exam Musculoskeletal: Present: no joint swelling, no erythema, moving extremities well. Absent: joint erythera, joint swelling - Routine Skin Exam Present: intact Comments: no new skin changes from previous exam. no evidence of cellulitis or other soft tissue/skin infection's anywhere. - Routine Neurological Exam Present: alert, oriented X3 no focal deficits grossly at this time. no photophobia. no clinical evidence of meningitis at this time. no clinical evidence of delerium, elisa, psychosis , altered mentation or sensorum. no clinical evidence of anxiety, depression, confusion. affect and cognition unchanged from previous baseline. - Routine Lymphatic Exam Lymphatic: Absent: lymphedema - Routine Psychiatric Exam Present: normal affect, normal thought process, cooperative, good insight, good judgment. Absent: suicidal ideation, homicidal ideation, auditory hallucinations, visual hallucinations, tactile hallucinations, depressed, anxious, agitated, paranoid, manic Results - Labs CBC & Chem 7: 06/24/17 02:14 06/24/17 02:14 Assessment and Plan DVT Prophylaxis: SCD's, Lovenox GI Prophylaxis: Protonix (but discontinued today as patient is hungry and will advance diet.), other (contiue to advance PO diet. ) Resuscitation Status: Full Code Assessment and Plan: acute sepsis syndrome with klebsiella oxcytoca bacteremia, likely secondary to whipple procedure/biliary cause acute hepatitis likely secondary to the above. mild dilated loops of small bowel on CT scan on admission with no clinical evidence of ileus or small bowel obstruction at this time. mild hypophosphatemia leukocytosis and bandemia secondary to the above. mild dilutional anemia T1DM history of pancreatic cancer s/p whipple procedure 11 years ago -make inpatient. continue routine vitals with call parameters, telemetry, oxygen as needed, I's and O's, daily weights. make up ad la nena. ambulate TID with assist. start clear liquids and advance diet as tolerated to diabetic diet. -cmp's with significantly improving transaminases, mildly low protein indices and otherwise unremarkable. GLUBS with sugars in low 100's. crp, coags, ck, mg, tylenol level, salicylate level, ammonia, iron studies, ferritin, fractionated bilirubin, total bilirubin, troponins, lactic acids, mononucleosis, RUQ ultrasound abdomen with dopplar, EKG, TSH, unremarkable. phos moderately low and being replaced. cbc with stable wbc count, improved bandemia and mild dilutional anemia and otherwise unremarkable. see above for other testing and results thus far from this stay. -INGRID, ceruloplasmin, acute hepatitis panel, blood cx X2, CMV/EBV serolgies, peripheral smear pending. -cbc, cmp, mg, phos in the AM. -started zosyn IV and pharmacy consulted. decreased IV NS to 75ml/hr. continue to hold lantus for now and follow sugars. continue to follow GLUBS, continue novolog s/s, continue hypoglycemia. holding home supplaments except home digestive enzymes. continue home ASA for now. continue IV zofran prn as well. replacing phos with IV Kphos at 15mmol over 2 hours today. -Dr. Betancourt of infectious disease consulted and spoken. agrees with the above abx for now. Dr. Bone consulted from surgery as patient may need colonoscopy and also to provide insight on how patient's whipple procedure may be playing into this. patient may need ERCP/MRCP possibly. patient may need PICC line as we go forward. -further management pending the above. bladder stone -follows with urology as outpatient. -not an acute issues all other chronic medical issues stable and no changes to plan of care at this time. ppx -SCD's for DVT ppx. start SQ lovenox at DVT prophylaxis dose given patient will be here longer than initially anticipated. -IV protonix discontinued now that patient is starting PO diet. continue PO diet as above. -FULL CODE -dispo---------make inpatient. - - Time spent with patient Time with patient PN: 25 minutes Sepsis Assessment - Evaluation Confirmed Suspected Infection: Yes
[2017-06-24] MEDS ORDERED: INSULIN GLARGINE 100unit/ml INJECTION SQ SCH (21:00)
[2017-06-25] MEDS: NS 1,000 ML IV SCH (00:23)
[2017-06-25] MEDS: PIPERACILLIN/TAZOBACTAM 3.375 GM in NS 100 ML IV SCH ×4 (03:05→22:13)
[2017-06-25] MEDS: INSULIN ASPART 100unit/ml INJECTION SQ PRN ×4 (06:31→22:13)
[2017-06-25] MEDS: CALCIUM 500 + VIT D 200 TABLET PO SCH ×2 (10:15→22:13)
[2017-06-25] MEDS: ASPIRIN *EC* 81 MG TABLET PO SCH (10:15)
[2017-06-25] MEDS: ENOXAPARIN 40 MG/0.4 ML INJECTION SQ SCH (10:15)
--- NOTE | 2017-06-25 10:17 | Infectious Disease Consult ---
Infectious Disease Consult Date of Consultation: 06/25/17 Requesting Physician: Antonio Hirsch Reason for Consultation: antibiotic recs History of Present Illness: Mr. Leyva is a 76 y/o man who underwent the Whipple procedure about 11 years ago for pancreatic cancer. He reports that about 3 weeks after his surgery, he had to have a second surgery because his stomach wasn't draining. He recovered and has done well, although he's had intermittent episodes of rather severe LUQ pain over the years, but these episodes usually only lasted a few minutes at a time. They resolved spontaneously and were not very frequent. About 6 weeks ago, he had an episode that was more severe, it lasted longer, and was associated with fevers, and chills. It eventually resolved and he felt back to normal. Then earlier this week, he had LUQ pain associated with fever, rigors, N/V. He was evaluated in the ED on 06/23 and found to have leukocytosis and LFTs in the 200-[address] abdomen/pelvis was done and it showed a few areas of mildly dilated small bowel and a chronic bladder stone and was otherwise unremarkable. UA in the ER was unremarkable. cXr was unremarkable. He was admitted for further evaluation. Both his blood cultures were positive for GNR. One of these has been identified as K. oxytoca with sensitivities pending. I've been asked to help with his evaluation. He was started on Zosyn and his leukocytosis and transaminitis is improved. He feels better. Dr. Bone has been consulted. Medications Home Medications Medication Instructions Recorded Confirmed Type Insulin Glargine,Hum.rec.anlog 10 - 17 unit SQ HS #0 02/03/10 06/23/17 History [Lantus] Cristian Cit/D3/K/Mag Ox/Stron/Bor 1 tab PO DAILY #0 06/27/13 06/23/17 History [Prosteon Tablet] Ascorbate Calcium [Vitamin C] 500 mg PO DAILY 06/23/17 06/23/17 History Aspirin [Lo-Dose Aspirin EC] 81 mg PO DAILY 06/23/17 06/23/17 History Calcium Carbonate/Vitamin D3 1 tab PO DAILY 06/23/17 06/23/17 History [Calcium 600-Vit D3 200 Tablet] Cranberry Fruit Extract [Cranberry] 405 mg PO DAILY 06/23/17 06/23/17 History Digestive 8/L.acidoph/Pectin 1 tab PO BID 06/23/17 06/23/17 History [Digestive Enzymes Tablet] Flaxseed Oil 1,000 mg PO DAILY 06/23/17 06/23/17 History Magnesium 400 mg PO DAILY 06/23/17 06/23/17 History Ubidecarenone/Vit E Acet [Co Q-10 100 mg PO DAILY 06/23/17 06/23/17 History 100 mg Softgel] Allergies Allergy/AdvReac Type Severity Reaction Status Date / Time No Known Drug Allergies Allergy Unknown Verified 06/23/17 15:06 [facility] Surgical History: -tonsillectomy. -cholecystectomy 1996 Td. -whipple procedure 2004 Td. -left leg splinter removal. -colonoscopy in 2012, reportedly normal and one not recommeded again until 2022 Td. -EGD in [place], Wipple anastamosis site with gastritis and hemorrhage Nai. Family History: Mother had diabetes - Social History Smoking status: Never smoker Substance use type: does not use Alcohol intake frequency: does not drink Current occupational status: retired Review of Systems All systems PM: 10-point ROS was reviewed, no additional remarkable complaints except - Constitutional Constitutional: Present: chills, fever(s) - EENMT Eyes: Absent: change in vision - Cardiovascular Cardiovascular: Absent: chest pain - Respiratory Respiratory: Absent: cough, dyspnea - Gastrointestinal Gastrointestinal: Present: abdominal pain (LUQ, see HPI), nausea, vomiting. Absent: change in bowel habits, change in stool character, diarrhea - Genitourinary Genitourinary: Absent: difficulty urinating, dysuria - Musculoskeletal Musculoskeletal: Absent: arthralgias - Integumentary/Breasts Integumentary: Absent: rash - Neurological Neurological: Absent: headache(s) - Endocrine Endocrine Comments: reports he has "mild diabetes" Exam Vital Signs: Temperature 98.2 F 06/25/17 07:48 Pulse Rate 64 06/25/17 07:48 Respiratory Rate 16 06/25/17 07:48 Blood Pressure 112/67 06/25/17 07:48 Pulse Oximetry 94 06/25/17 07:48 Height/Weight/BMI: Weight 61.1 kg - Constitutional Present: no acute distress, well nourished, well developed - Routine HEENT Exam Head: Present: normocephalic, atraumatic Eye: Present: EOMI, PERRL ENT: Present: mucous membranes moist, dentition normal - Routine Neck Exam Present: supple - Routine Respiratory Exam Present: CTA bilaterally. Absent: accessory muscle use - Routine Cardiovascular Exam Present: RRR. Absent: murmur - Routine Abdominal Exam Present: soft, normoactive bowel sounds, non distended, non tender. Absent: rebound, guarding - Routine Extremities Exam Absent: cyanosis, clubbing, edema - Routine Skin Exam Present: intact. Absent: rash - Routine Neurological Exam Present: alert, oriented X3, CN II-XII intact - Routine Psychiatric Exam Present: normal affect, normal thought process Results - Labs CBC & Chem 7: 06/25/17 04:55 06/25/17 04:55 Microbiology Results: 06/23: K. oxytoca in blood culture Impression: Sepsis, suspect secondary to GI source. Elevated transaminases Leukocytosis LUQ abdominal pain, intermittent and recurrent S/p Whipple procedure DM II, IR Bladder stone Recommendation: Recommend continuing the Zosyn pending susceptibilities. Micro lab thinks the susceptibilities will be available tomorrow. If it's sensitive to cipro, recommend changing to po cipro 500mg bid to complete 14 days. Would also consider adding flagyl. Recommend MRCP to further evaluate for source. If unrevealing, he might need a colonoscopy.
--- NOTE | 2017-06-25 12:39 | Magnetic Resonance Report ---
Indication: GNR sepsis, h/o Whipple PROCEDURE: MR MRCP: Encounter: Initial Comparison: CT and ultrasound exams of the abdomen dated June 23, 2017 Technique: Multiplanar multisequence MR imaging of the abdomen was performed for an MRCP. 3-D MRCP respiratory gated heavily T2-weighted thick slab sequences were performed with volumetric reconstructions. Axial T2, coronal T2 and axial in and out of phase imaging was performed along with axial and coronal SSFP localizer images and axial diffusion-weighted imaging. Findings: Postoperative changes from prior Whipple procedure. No obvious liver masses. No intrahepatic bile duct dilatation. No filling defects seen within the common duct. Hepaticojejunostomy. Impression: No evidence of common duct stone or bile duct dilatation. .
--- NOTE | 2017-06-25 14:17 | Progress Note ---
Subjective: patient doing well. no issues at all. no headaches, stroke symptoms, photophobia, meningeal symptoms, dizziness, fatigue, weakness, syncope, rashes, skin changes, ear pain, sinus pain, sore throat, URI symptoms, fevers, chills, diphoresis, other constitutional symptoms. appetite good and patient tolerating PO diet now (solid food). he feels hungry. no chest pain, SOA, orthopnea, PND, edema, leg asymmetry, vision changes, cellulitis symptoms, palpitations, cough, sputum production, hemoptysis. no abdominal pain, nausea, vomiting, hematemesis, coffee ground emesis, melena, BRBPR, constipation, diarrhea, bloody/black stools, dysphagia. no dysuria, hematuria, urinary frequency, flank pain, nocturia, urinary/bowel incontinance, other urinary symptoms/changes. no changes in urinary stream, polyuria, oliguria. no mood changes or depression symptoms. no events called on telemetry. no acute issues overnight. present for part of encounter today. no new issues otherwise at this time. Objective Vital signs: Temperature 98.2 F 06/25/17 07:48 Pulse Rate 61 06/25/17 08:00 Respiratory Rate 16 06/25/17 07:48 Blood Pressure 112/67 06/25/17 07:48 Pulse Oximetry 94 06/25/17 07:48 Rhythm: Normal Sinus Rhythm Height/Weight/BMI: Weight 61.1 kg - Constitutional Present: no acute distress Comments: well appearing. not obtunded. cooperative. - Routine HEENT Exam Head: Present: normocephalic, atraumatic ENT: Present: mucous membranes moist - Routine Respiratory Exam Present: CTA bilaterally Comments: no crackles, wheezes, rales. lung sounds heard in all lung murphy b/l at this time. moving air well. no respiratory distress. - Routine Cardiovascular Exam Present: RRR, no murmur Comments: cardiac exam unchanged from previous. no LE edema bilaterally. extremities warm and clinically well perfused in all 4 extremities b/l at this time. legs symmetrical and compartments soft b/l in LE's at this time. IV site looks good. - Routine Abdominal Exam Present: soft (X4.), normoactive bowel sounds (x4.), non distended (X4.), non tender (X4.) Comments: no rebound, guarding, rigidity. no organomegally or mass. no ascites or jaundice. - Routine Exam Comments: no tenderness over bladder area. no flank pain b/l at this time. - Routine Extremities Exam Comments: no pallor or cyanosis in extremities at this time. see the above. - Routine Musculoskeletal Exam Musculoskeletal: Present: normal strength, no joint swelling, no tenderness, no erythema, moving extremities well - Routine Skin Exam Present: intact Comments: no skin changes or new rashes. no evidence of skin/soft tissue infections. no changes form previous baseline - Routine Neurological Exam Present: alert, oriented X3 no photophobia. no clinical evidence of meningitis at this time. no focal deficits grossly. no changes from previous baseline. - Routine Lymphatic Exam Comments: no lymphedema. - Routine Psychiatric Exam Present: normal affect, normal thought process, cooperative, good insight, good judgment Comments: no clinical evidence of depression, elisa, altered mentation/sensorum, confusion , psychosis, delerium. affect and cognition unchanged from previous baseline. Results - Labs CBC & Chem 7: 06/25/17 04:55 06/25/17 04:55 Assessment and Plan DVT Prophylaxis: SCD's, Lovenox GI Prophylaxis: other (continue PO diet.) Resuscitation Status: Full Code Assessment and Plan: acute sepsis syndrome with klebsiella oxcytoca bacteremia, likely secondary to whipple procedure/biliary cause acute hepatitis likely secondary to the above, improved. mild dilated loops of small bowel on CT scan on admission with no clinical evidence of ileus or small bowel obstruction at this time. mild hypophosphatemia, resolved. leukocytosis and bandemia secondary to the above, resolved. mild dilutional anemia T1DM history of pancreatic cancer s/p whipple procedure 11 years ago -continue inpatient, routine vitals with call parameters, telemetry, oxygen as needed, I's and O's, daily weights, up ad la nena, ambulate TID with assist, diabetic diet. -cmp's with continually improving transaminases and normal bilirubin and otherwise ok. cbc's with resolved leukocytosis and bandemia and mild dilutional anemia. GLUBS in 100's mostly but now in 200's at times now that he's eating. mg normal. phos normal now after replacement. blood cx X2 positive for klebsiella oxytoca and sensitivities pending. MRCP done today unremarkable. acute hepatitis panel negative. CMV serologies negative. INGRID negative. cerreuloplasmin unremarkable. see above for other testing and results thus far from this stay. -EBV serolgies, peripheral smear pending. -cbc, cmp in the AM. -continue zosyn IV day 2 and pharmacy consulted. d/c IV fluids. restart lantus at 5 units qHS. continue to hold lantus for now. continue to follow GLUBS. continue novolog s/s, continue hypoglycemia protocol. continue holding home supplaments except home digestive enzymes. continue home ASA for now. continue IV zofran prn. replaced phos yesterday. -Dr. Betancourt of infectious disease and Dr. Bone of surgery consulted. colonoscopy is a consideration. ERCP a consideration but can be done as outpatient most likely. patient may need PICC line as we go forward. -further management pending the above. bladder stone -follows with urology as outpatient. -not an acute issue all other chronic medical issues stable and no changes to plan of care at this time. ppx -continue SCD's and SQ lovenox at DVT prophylaxis dose for DVT ppx. -continue PO diet as above for GI prophylaxis. -FULL CODE -dispo---------will be inpatient over the weekend getting IV antibotics. . - - Time spent with patient Time with patient PN: 25 minutes Sepsis Assessment - Evaluation Confirmed Suspected Infection: Yes
--- NOTE | 2017-06-25 19:49 | Progress Note ---
DATE OF SERVICE 06/25/2017 FINDINGS Mr. Leyva today denied recurrent abdominal pain or any recent element of fever or chills. EXAM VITAL SIGNS: Temperature 97.7, pulse 54, respirations 16, blood pressure 118/69 , SAO2 97%on room air. HEENT: Normocephalic. Pupils are equally round and react to light and accommodation. CHEST: Clear to auscultation bilaterally. HEART: Regular rate and rhythm. Normal S1 and S2 without gallops, murmurs or clicks. ABDOMEN: Soft, completely nontender. LABORATORY/RADIOGRAPHIC EVALUATION The patient's blood cultures have returned revealing Klebsiella oxytoca. He does have two peripheral IV blood cultures which are positive for Klebsiella. MRCP was obtained today and did not reveal any evidence for biliary dilatation or stone. Post-Whipple changes were noted. From a laboratory standpoint his white count has decreased to 87. BMP obtained and found to be without marked abnormalities. Liver function tests are improving. ASSESSMENT 76-year-old gentleman status post pancreaticoduodenectomy in the remote past. Patient with recent onset of fever, chills, abdominal pain. Positive blood culture for Klebsiella, exact etiology unclear. PLAN Continue with ongoing IV antibiotics. At this point in time I do not have a good explanation for his intermittent fever and chills. I question whether or not this could have very well been biliary despite the lack of findings noted on MRCP or radiographic evaluation. He was found to have increased liver function tests and perhaps he did have a component of temporary biliary stasis with cholangitis. To further assess his GI tract, if the patient is still present on Wednesday, we may obtain an upper GI and small-bowel follow-through. The patient stated Dr. Appiah had performed a colonoscopy upon him in 2011 or 2012 that was within normal limits. May contemplate repeating colonoscopy in the future as well for further evaluation of his intermittent pain and fever/ leukocytosis. Will continue to follow along in the patient's care. ANAND
[2017-06-25] MEDS: INSULIN GLARGINE 100unit/ml INJECTION SQ SCH (22:12)
[2017-06-25] MEDS: SALINE FLUSH 10ml SYRINGE IVF PRN (22:14)
[2017-06-26] MEDS ORDERED: NS FLUSH BAG 500ml IV PRN (03:43)
[2017-06-26] MEDS: PIPERACILLIN/TAZOBACTAM 3.375 GM in NS 100 ML IV SCH ×4 (03:47→21:20)
[2017-06-26] MEDS: SALINE FLUSH 10ml SYRINGE IVF PRN ×2 (03:48→21:19)
[2017-06-26] MEDS: NS 1,000 ML IV SCH (05:38)
[2017-06-26] MEDS: ENOXAPARIN 40 MG/0.4 ML INJECTION SQ SCH (08:46)
[2017-06-26] MEDS: CALCIUM 500 + VIT D 200 TABLET PO SCH ×2 (08:46→21:19)
[2017-06-26] MEDS: ASPIRIN *EC* 81 MG TABLET PO SCH (08:46)
[2017-06-26] MEDS: INSULIN ASPART 100unit/ml INJECTION SQ PRN ×3 (11:19→21:19)
--- NOTE | 2017-06-26 15:31 | Progress Note ---
Subjective: patient doing well overall. this AM had X4 episodes of loose watery brown stools. no other GI symptoms with it. he notices less gurgling in his stomach and no diarrhea over the past 3 hours so he's optimistic this has resolved. he was a little fatigued this AM but this has resolved as well. no bloody/black stools. no mucous in stools. no recent travel, camping, sick exposures. no abdominal pain, nausea, vomiting, hematemesis, coffee ground emesis, GERD symptoms. he's eating and drinking ok. no headaches, stroke symptoms, focal neurologic deficits. no numbness/weakness/tingling anywhere. no dizziness, syncope, weakness. no URI symptoms or sinus issues. no other constitutional symptoms. no chest pain, SOA, orthopnea, PND, edema, leg asymmetry. no skin changes or new rashes. no leg swelling or asymmetry. no palpitations, cough, sputum production, dysuria, hematuria, urinary frequency, flank, pain, nocturia , urinary/bowel incontinance. no other urinary issues or changes. no skin changes, rashes or skin/soft tissue infection symptoms. no mood changes, altered mentation, confusion, changes in cognition. no events called on telemetry. no acute issues overnight otherwise. Objective Vital signs: Temperature 97.4 F 06/26/17 07:34 Pulse Rate 57 L 06/26/17 08:00 Respiratory Rate 16 06/26/17 07:34 Blood Pressure 136/73 06/26/17 07:34 Pulse Oximetry 95 06/26/17 07:34 Rhythm: Normal Sinus Rhythm Height/Weight/BMI: Weight 60.8 kg - Constitutional Present: no acute distress, cooperative Comments: no obtunded, somnolent or combative. - Routine HEENT Exam Head: Present: normocephalic, atraumatic ENT: Present: mucous membranes moist - Routine Respiratory Exam Present: CTA bilaterally Comments: LCTAB. no crackles, wheezes, rales. no respiratory distress, retractions, accessory muscle use. no stridor or airway compromise. moving air well. lung sounds heard in all lung murphy b/l at this time. - Routine Cardiovascular Exam Present: RRR, no murmur Comments: hRRR without murmur. no LE edema bilaterally. legs symmetrical and compartments soft b/l in LE's at this time. clinically well perfused in all 4 extremities b/l at this time. - Routine Abdominal Exam Present: soft (X4.), normoactive bowel sounds (X4.), non distended (X4.), non tender (X4.) Comments: no guarding, rebound, rigidity. no ascites or jaundice. no organomegally or mass. - Routine Extremities Exam Comments: see above. extremities X4 warm. - Routine Back/Spine/Pelvis Exam Comments: no flank pain b/l. - Routine Musculoskeletal Exam Musculoskeletal: Present: no clubbing or cyanosis, no joint swelling, no tenderness, no erythema, moving extremities well - Routine Skin Exam Present: intact Comments: no skin changes as compared to previous to uncovered areas. no evidence of skin /soft tissue infection or new rashes. - Routine Neurological Exam Present: alert, oriented X3 no focal deficits grossly. no clinical evidence of meningitis at this time. no photophobia at this time. - Routine Lymphatic Exam Comments: no lymphedema. Results - Labs CBC & Chem 7: 06/26/17 05:04 06/26/17 05:04 Assessment and Plan DVT Prophylaxis: SCD's, Lovenox GI Prophylaxis: other (continue PO diet.) Resuscitation Status: Full Code Assessment and Plan: acute sepsis syndrome with klebsiella oxcytoca bacteremia, likely secondary to whipple procedure diarrhea this morning of uncertain etiology acute hepatitis likely secondary to the above, improved. mild dilated loops of small bowel on CT scan on admission with no clinical evidence of ileus or small bowel obstruction at this time. mild hypophosphatemia, resolved. leukocytosis and bandemia secondary to the above, resolved. mild dilutional anemia T1DM history of pancreatic cancer s/p whipple procedure 11 years ago -continue inpatient, routine vitals with call parameters,oxygen as needed, I 's and O's, daily weights, up ad la nena, ambulate TID with assist, diabetic diet. d/c telemetry and continuous pulse ox. -cmp's with continually improving transaminases and normal bilirubin and otherwise ok. cbc's with resolved leukocytosis and bandemia and stable mild dilutional anemia. GLUBS in 100's to low 200's. blood cx X2 positive for klebsiella oxytoca and are masterson sensitive. see previous notes for other testing and results thus far from this stay. -peripheral smear pending from admission pending. -cbc, cmp, mg, phos in the AM. -continue zosyn IV day 3 and pharmacy consulted. increase lantus to 10 units qHS. continue to follow GLUBS. continue novolog s/s and hypoglycemia protocol. continue holding home supplaments except home digestive enzymes. continue home ASA for now. continue IV zofran prn. add probiotic today. -Dr. Betancourt of infectious disease and Dr. Bone of surgery consulted. colonoscopy is a consideration. ERCP a consideration but can be done as outpatient most likely. patient may need PICC line as we go forward. -further management pending the above. bladder stone -follows with urology as outpatient. -not an acute issue all other chronic medical issues stable and no changes to plan of care at this time. ppx -continue SCD's and SQ lovenox at DVT prophylaxis dose for DVT ppx. -continue PO diet as above for GI prophylaxis. -FULL CODE -dispo---------will be inpatient over the weekend getting IV antibotics. - - Time spent with patient Time with patient PN: 25 minutes Sepsis Assessment - Evaluation Confirmed Suspected Infection: Yes
[2017-06-26] MEDS: INSULIN GLARGINE 100unit/ml INJECTION SQ SCH (21:20)
[2017-06-27] MEDS: SALINE FLUSH 10ml SYRINGE IVF PRN ×2 (03:35→22:22)
[2017-06-27] MEDS: PIPERACILLIN/TAZOBACTAM 3.375 GM in NS 100 ML IV SCH ×4 (03:36→21:29)
[2017-06-27] MEDS: CALCIUM 500 + VIT D 200 TABLET PO SCH ×2 (09:02→21:29)
[2017-06-27] MEDS: ASPIRIN *EC* 81 MG TABLET PO SCH (09:02)
[2017-06-27] MEDS: ENOXAPARIN 40 MG/0.4 ML INJECTION SQ SCH (09:03)
[2017-06-27] MEDS: INSULIN ASPART 100unit/ml INJECTION SQ PRN ×3 (12:08→21:28)
--- NOTE | 2017-06-27 16:27 | Progress Note ---
Subjective: no acute issues overnight. patient doing well overall. his loose stools and diarrhea have persisted since yesterday. X4 stools since yesterday. all diarrhea except the last one which was more formed. watery brown in color. no mucous in stools and no bloody/black stools. no headaches, stroke symptoms, syncope, dizziness, falls, trauma, URI symptoms, sinus issues. no fevers, chills, body aches, fatigue, weakness. no focal neurologic deficits, chest pain , SOA, orthopnea, PND, edema, leg asymmetry, skin changes/rashes. no palpitations, cough, sputum production, hemoptysis. no GERD symptoms, gastritis symptoms, hematemesis, coffee ground emesis, melena, BRBPR, constipation. no dysphagia or other GI warning symptoms. no new or changing dysuria. no hematuria, urinary frequency, flank pain, nocturia, urinary/bowel incontinance. no mood changes or depression symptoms. no new issues otherwise at this time. Objective Vital signs: Temperature 96.6 F L 06/27/17 14:52 Pulse Rate 49 L 06/27/17 14:52 Respiratory Rate 14 06/27/17 14:52 Blood Pressure 135/71 06/27/17 14:52 Pulse Oximetry 98 06/27/17 14:52 Height/Weight/BMI: Weight 61 kg - Constitutional Present: no acute distress (patient doesn't appear ill. ) Comments: is cooperative. not obtunded. no changes from previous. - Routine HEENT Exam Head: Present: normocephalic, atraumatic ENT: Present: mucous membranes moist - Routine Respiratory Exam Present: CTA bilaterally Comments: no crackles, wheezes, rales. moving air well. lung sounds heard in all lung murphy b/l at this time. no respiratory distress. - Routine Cardiovascular Exam Present: RRR, no murmur Comments: cardiac exam unchanged from previous. no edema. legs symmetrical and no compartments soft b/l in LE's b/l at this time. clinically well perfused in all 4 extremities b/l at this time. - Routine Abdominal Exam Present: soft (X4.), normoactive bowel sounds (X4.), non distended (X4.), non tender (X4.) Comments: no guarding, rebound, rigidity. no ascites or jaundice. no clinical evidence of acute abdomen at this time. - Routine Exam Comments: no tenderness over bladder area. - Routine Extremities Exam Comments: no pallor or cyanosis. no changes from previous. - Routine Skin Exam Present: intact Comments: no new skin changes. no evidence clinically of skins/soft tissue infections. no new rashes. - Routine Neurological Exam Present: alert, oriented X3 no focal deficits grossly. no photophobia. no clinical evidence of meningitis at this time. - Routine Lymphatic Exam Comments: no changes from previous baseline. - Routine Psychiatric Exam Present: normal affect, normal thought process, cooperative, good insight, good judgment Comments: no clinical evidence of delerium, altered mentation, altered mentation/cognition , confusion, depression, anxiety, elisa, psychosis. Results - Labs CBC & Chem 7: 06/27/17 04:33 06/27/17 04:33 Assessment and Plan DVT Prophylaxis: SCD's, Lovenox GI Prophylaxis: other (PO diet.) Resuscitation Status: Full Code Assessment and Plan: acute sepsis syndrome with klebsiella oxcytoca bacteremia, likely secondary to whipple procedure diarrhea over the past 2 days of uncertain etiology acute hepatitis likely secondary to the above, resolved. mild dilated loops of small bowel on CT scan on admission with no clinical evidence of ileus or small bowel obstruction at this time. mild hypophosphatemia, resolved. leukocytosis and bandemia secondary to the above, resolved. mild dilutional anemia T1DM history of pancreatic cancer s/p whipple procedure 11 years ago -continue inpatient, routine vitals with call parameters,oxygen as needed, I 's and O's, daily weights, up ad la nena, ambulate TID with assist, diabetic diet. -cmp's with resolved transaminase elevation, mildly elevated glucose and otherwise ok. cbc's with stable dilutional anemia and otherwise unremarkable. GLUBS with sugars generally in 100's. check stool PCR and stool wbc. mg and phos ok. see previous notes for other testing, discussion and results from this stay. -peripheral smear pending from admission pending. -cbc, cmp in the AM. -continue zosyn IV day 4 and pharmacy consulted. continue lantus at 10 units qHS. continue to follow GLUBS. continue novolog s/s and hypoglycemia protocol. continue holding home supplaments except home digestive enzymes. continue home ASA for now. continue IV zofran prn. continue probiotic. -Dr. Betancourt of infectious disease and Dr. Bone of surgery consulted. colonoscopy is a consideration. ERCP a consideration but can be done as outpatient most likely. patient may need PICC line as we go forward. -further management pending the above. bladder stone -follows with urology as outpatient. -not an acute issue all other chronic medical issues stable and no changes to plan of care at this time. ppx -continue SCD's and SQ lovenox at DVT prophylaxis dose for DVT ppx. -continue PO diet as above for GI prophylaxis. -FULL CODE -dispo---------will be inpatient over the weekend getting IV antibotics. - - Time spent with patient Time with patient PN: 25 minutes Sepsis Assessment - Evaluation Confirmed Suspected Infection: Yes
[2017-06-27] MEDS: LACTOBACILLUS (15B cfu) CAPSULE PO SCH (17:35)
[2017-06-27] MEDS: INSULIN GLARGINE 100unit/ml INJECTION SQ SCH (21:28)
[2017-06-28] MEDS: SALINE FLUSH 10ml SYRINGE IVF PRN (03:49)
[2017-06-28] MEDS: PIPERACILLIN/TAZOBACTAM 3.375 GM in NS 100 ML IV SCH ×2 (03:49→08:02)
[2017-06-28] MEDS: CALCIUM 500 + VIT D 200 TABLET PO SCH ×2 (08:02→20:44)
[2017-06-28] MEDS: ASPIRIN *EC* 81 MG TABLET PO SCH (08:02)
[2017-06-28] MEDS: LACTOBACILLUS (15B cfu) CAPSULE PO SCH ×2 (08:02→17:49)
--- NOTE | 2017-06-28 09:25 | Progress Note ---
Subjective Date: 06/28/17 Subjective: He denies any fevers, chills, N/V or abdominal pain the past several days. He is having loose stools and some abdominal cramping associated with that, most likely related to the zosyn. MRCP was unremarkable. He states his BP "spiked" yesterday evening. Exam Vital Signs: Temperature 97.6 F 06/28/17 07:39 Pulse Rate 48 L 06/28/17 07:39 Respiratory Rate 16 06/28/17 07:39 Blood Pressure 161/75 H 06/28/17 07:39 Pulse Oximetry 97 06/28/17 07:39 Height/Weight/BMI: Weight 59.7 kg - Constitutional Present: no acute distress, well nourished, well developed - Routine HEENT Exam Head: Present: normocephalic, atraumatic Eye: Present: EOMI, PERRL ENT: Present: mucous membranes moist, dentition normal - Routine Neck Exam Present: supple - Routine Respiratory Exam Present: CTA bilaterally. Absent: accessory muscle use - Routine Cardiovascular Exam Present: RRR. Absent: murmur - Routine Abdominal Exam Present: soft, normoactive bowel sounds, non distended, non tender. Absent: rebound, guarding - Routine Extremities Exam Absent: cyanosis, clubbing, edema - Routine Back/Spine/Pelvis Exam Back/Spine: Present: full ROM - Routine Skin Exam Present: intact. Absent: rash - Routine Neurological Exam Present: alert, oriented X3, CN II-XII intact - Routine Psychiatric Exam Present: normal affect, normal thought process Results - Labs CBC & Chem 7: 06/28/17 04:00 06/28/17 04:00 Microbiology Results: Blood cultures 06/23/17 with K. oxytoca R only to ampicillin. - Impressions Signed Patient: Zaid Leyva MR#: [id number] : 1940 Age/Sex: 76 / M ADM Date: 06/24/17 Loc: MED 160-P DIS Date: = = = = = = = = = = = = = = = = = = = = = = = = = = = = = = = = = = = = = = = = = = = = = = = = = = = = = = = = = = = Date of Exam: 06/25/17 Ordering Provider: Lia Betancourt MD Type of Exam(s): MR MRCP Reason for Exam(s): GNR sepsis, h/o Whipple Indication: GNR sepsis, h/o Whipple PROCEDURE: MR MRCP: Encounter: Initial Comparison: CT and ultrasound exams of the abdomen dated June 23, 2017 Technique: Multiplanar multisequence MR imaging of the abdomen was performed for an MRCP. 3-D MRCP respiratory gated heavily T2-weighted thick slab sequences were performed with volumetric reconstructions. Axial T2, coronal T2 and axial in and out of phase imaging was performed along with axial and coronal SSFP localizer images and axial diffusion-weighted imaging. Findings: Postoperative changes from prior Whipple procedure. No obvious liver masses. No intrahepatic bile duct dilatation. No filling defects seen within the common duct. Hepaticojejunostomy. Impression: No evidence of common duct stone or bile duct dilatation. . Impression: Sepsis, suspect secondary to GI source. Septicemia with K. oxytoca. Elevated transaminases Leukocytosis LUQ abdominal pain, intermittent and recurrent S/p Whipple procedure DM II, IR Bladder stone Recommendation: I will change his antibiotics to cipro 500mg po bid and flagyl 500mg po bid to complete 14 days total (through 07/07/17). I think he could be discharged. Recommend colonoscopy sometime in the near future. I advised him that if his symptoms recur, he should return to the ED.
[2017-06-28] MEDS: CIPROFLOXACIN 500 MG TABLET PO SCH ×2 (10:34→20:44)
[2017-06-28] MEDS: MetroNIDAZOLE 500 MG TABLET PO SCH ×2 (10:34→17:49)
[2017-06-28] MEDS: INSULIN ASPART 100unit/ml INJECTION SQ PRN ×2 (11:37→20:51)
--- NOTE | 2017-06-28 18:17 | Progress Note ---
Subjective: overall patient doing ok. bp a little high this AM and HR's in high 40's to low 50's. has had these heart rates before but the elevated bp's are new. these are concerning him. he has no symptoms from them. he does note feeling moderately more gassy and bloated as compared to yesterday. having BM's which are small and soft today but form noted. no bloody/black stools. no diarrhea today. no abdominal distension. no headaches, stroke symptoms, syncope, dizziness, falls, trauma, URI symptoms, sinus issues. no falls, trauma, injuries. he is modestly more fatigued today than yesterday. no weakness. doesn't feel unsteady on his feet. no chest pain, SOA, orthopnea, PND, edema, leg asymmetry, skin changes/rashes. no numbness/weakness/tingling anywhere. no altered mentation or changes in cognition. no depression symptoms or psychiatric changes. no dysuria, hematuria, urinary frequency, flank pain, nocturia, urinary/bowel incontinance, urinary/bowel changes. denies abdominal pain. no nausea, vomiting, fevers, chills, body aches, changes in appetite, other constitutional symptoms. no constipation. no skin changes or skin/soft tissue infection symptoms. present for most of encounter today. no acute issues overnight. no new issues otherwise at this time. Objective Vital signs: Temperature 98 F 06/28/17 15:23 Pulse Rate 48 L 06/28/17 15:23 Respiratory Rate 16 06/28/17 15:23 Blood Pressure 153/75 H 06/28/17 15:23 Pulse Oximetry 97 06/28/17 15:23 Height/Weight/BMI: Weight 59.7 kg - Constitutional Present: no acute distress (not ill appearing.) Comments: not combative, agitated or obtunded. - Routine HEENT Exam Head: Present: normocephalic, atraumatic ENT: Present: mucous membranes moist - Routine Respiratory Exam Present: CTA bilaterally Comments: LCTAB. no crackles/wheezes/rales. no respiratory distress. - Routine Cardiovascular Exam Present: no murmur, bradycardia Comments: heart regular rhythm. rate in low 50's at this time. no new edema. legs symmetrical and compartments soft b/l in LE's at this time. clinically well perfused in all 4 extremities b/l at this time. no changes from previous. - Routine Abdominal Exam Present: soft (X4.), non distended (X4.), non tender (X4 to deep palpation.) Comments: bowel sounds moderately hyperactive in all 4 quadrants. no guarding, rebound, rigidity, organomegally, mass, ascites, jaundice. - Routine Extremities Exam Comments: see above. - Routine Musculoskeletal Exam Musculoskeletal: Present: no joint swelling, no tenderness, no erythema, moving extremities well - Routine Skin Exam Present: intact Comments: no new changes to uncovered areas. no clinical evidence of skin/soft tissue infection. no changes from previous. - Routine Neurological Exam no focal deficits grossly. no photophobia. no clinical evidence of meningitis at this time. no changes from previous. no clinical evidence of delerium, elisa, depression, anxiety, altered mentation/sensorum, psychosis. affect and cognition unchanged from previous baseline. - Routine Psychiatric Exam Present: normal affect, normal thought process, cooperative, good insight, good judgment Comments: see above. Results - Labs CBC & Chem 7: 06/28/17 04:00 06/28/17 04:00 Assessment and Plan DVT Prophylaxis: SCD's, Lovenox GI Prophylaxis: other (PO diet.) Resuscitation Status: Full Code Assessment and Plan: acute sepsis syndrome with klebsiella oxcytoca bacteremia, likely secondary to whipple procedure sinus bradycardia elevated blood pressure without mention of hypertension diarrhea/loose stools over the last 3 days secondary to zosyn. acute hepatitis likely secondary to the above, resolved. mild dilated loops of small bowel on CT scan on admission with no clinical evidence of ileus or small bowel obstruction at this time. mild hypophosphatemia, resolved. leukocytosis and bandemia secondary to the above, resolved. mild dilutional anemia T1DM history of pancreatic cancer s/p whipple procedure 11 years ago -continue inpatient, routine vitals with call parameters,oxygen as needed, I 's and O's, daily weights, up ad la nena, ambulate TID with assist, diabetic diet. restarted telemetry. bp's have improved since earlier this AM (were in 190's systolic) and otherwise patient completely asymptomatic from this. abdominal exam very reassuring at this time. will monitor. -cmp's with resolved transaminase elevation, mildly elevated glucose and otherwise ok. cbc's with stable dilutional anemia and otherwise unremarkable. GLUBS with sugars generally stable. stool PCR and wbc unremarkable. EKG this AM with sinus triston and otherwise unremarkable. troponin negative this AM. see previous notes for other testing, discussion and results from this stay. -peripheral smear pending from admission pending. -check FOBT and KUB upright today. -cbc, cmp in the AM. -zosyn discontinued. hopefully this will help GI issues. cipro/flagyl oral started by infectious disease. continue lantus at 10 units qHS. continue to follow GLUBS. continue novolog s/s and hypoglycemia protocol. continue holding home supplaments except home digestive enzymes. continue home ASA for now. continue IV zofran prn. continue probiotic. -Dr. Betancourt of infectious disease and Dr. Bone of surgery consulted. colonoscopy is a consideration as outpatient. ERCP a consideration but can be evaluated further as outpatient. doesn't appear patient will need a PICC line. -further management pending the above. bladder stone -follows with urology as outpatient. -not an acute issue all other chronic medical issues stable and no changes to plan of care at this time. ppx -continue SCD's and SQ lovenox at DVT prophylaxis dose for DVT ppx pending above. -continue PO diet as above for GI prophylaxis. -FULL CODE -dispo---------patient states not comfortable going home yet. will monitor bradycardia and blood pressures and likely discharge home tomorrow. - Time spent with patient Time with patient PN: 25 minutes Sepsis Assessment - Evaluation Confirmed Suspected Infection: Yes
[2017-06-28] MEDS ORDERED: HYDRALAZINE 20 MG/ML INJECTION IVP PRN (18:42)
[2017-06-28] MEDS: INSULIN GLARGINE 100unit/ml INJECTION SQ SCH (20:44)
[2017-06-29 08:26] VITALS: BP 114/69; PULSE 76; RESP 16; TEMP 97.3; O2SAT 97
[2017-06-29] MEDS: ASPIRIN *EC* 81 MG TABLET PO SCH (08:29)
[2017-06-29] MEDS: MetroNIDAZOLE 500 MG TABLET PO SCH (08:29)
[2017-06-29] MEDS: LACTOBACILLUS (15B cfu) CAPSULE PO SCH (08:29)
[2017-06-29] MEDS: CALCIUM 500 + VIT D 200 TABLET PO SCH (08:29)
[2017-06-29] MEDS: CIPROFLOXACIN 500 MG TABLET PO SCH (08:29)
--- NOTE | 2017-06-29 08:36 | XRay Report ---
Indication: bloating. PROCEDURE: XR KUB w upright: Encounter: Initial Comparison: CT abdomen and pelvis dated June 23, 2017 Findings: No free air. Surgical clips in the central upper abdomen and right upper quadrant. Bowel gas pattern is nonobstructive and nonspecific. Moderate stool in the colon. No abnormally dilated small or large bowel loops. Large bladder stone. Mild degenerative change in the spine. Impression: Nonobstructive nonspecific bowel gas pattern. .
[2017-06-29] MEDS: INSULIN ASPART 100unit/ml INJECTION SQ PRN (11:17)
--- NOTE | 2017-06-29 13:07 | Discharge Instructions ---
Discharge Plan - Med Rec/Dispo Referrals/Follow Up: Antonio Hirsch DO [Family Provider] - 1 Week (with cbc and cmp done the day before and sent to him. ICD 10 code for this is D64.9. ) Lia Betancourt MD [Physician] - 3 Weeks Alec Bone MD [Physician] - 2 Weeks (to discuss colonoscopy and whipple procedure.) [place] Instructions: Leukocytosis (GEN) Additional Instructions: -TO NURSING. please discontinue all lines, IV's and telemetry patient didn't come in on before discharge. -If any issues worsen and/or new ones occur be seen immediately. Prescriptions: New MetroNIDAZOLE [Flagyl] 500 mg PO BIDWM 8 Days #16 tab Ciprofloxacin [Cipro] 500 mg PO Q12HR 8 Days #16 tab Continue Ascorbate Calcium [Vitamin C] 500 mg PO DAILY Digestive 8/L.acidoph/Pectin [Digestive Enzymes Tablet] 1 tab PO BID Aspirin [Lo-Dose Aspirin EC] 81 mg PO DAILY Magnesium 400 mg PO DAILY Insulin Glargine,Hum.rec.anlog [Lantus] 10 - 17 unit SQ HS #0 Cristian Cit/D3/K/Mag Ox/Stron/Bor [Prosteon Tablet] 1 tab PO DAILY #0 Calcium Carbonate/Vitamin D3 [Calcium 600-Vit D3 200 Tablet] 1 tab PO DAILY Ubidecarenone/Vit E Acet [Co Q-10 100 mg Softgel] 100 mg PO DAILY Discontinued Flaxseed Oil 1,000 mg PO DAILY Cranberry Fruit Extract [Cranberry] 405 mg PO DAILY Discharge Instructions/Outpatient Orders: Provider Discharge Instructions Location: Determined By Patient - Disposition 01 Discharged Home, Self-Care
--- NOTE | 2017-06-29 13:26 | Progress Note ---
Subjective: no acute issues overnight. no events called on telemetry. bp has normalized of late. he did notice some lightheadedness right after the hydralazine was given last night but nothing before or since. no other dizziness, lightheadedness. no syncope or near syncope. no headaches, stroke symptoms, focal neurologic deficits, fevers, chills, body aches, fatigue, weakness. he does feel stronger than yesterday. no vision changes. no ear pain, sinus pain , sore throat. no skin changes or rashes. no falls, trauma, injuries. no chest pain, SOA, orthopnea, PND, edema. no symptoms consistent with soft tissue or skin infection. no new rashes or skin changes. no edema, leg asymmetry. no rigors. doesn't feel systemically unwell. no vision changes. no cough, sputum production, hemoptysis. no abdominal pain, nausea, vomiting, diarrhea, constipation, bloody/black stools. stools soft and small but formed normally otherwise at this time. no bloody/black stools. no new or changing dysuria. no hematuria. no mucous in stools. no mood changes, depression symptoms, psychiatric changes, changes in cognition. no urinary/bowel incontinance. no polyuria, oliguria, changes in urinary stream. present for most of encounter today. patient feels comfortable going home at this time. no new issues otherwise at this time. Objective Vital signs: Temperature 97.3 F 06/29/17 08:26 Pulse Rate 76 06/29/17 08:26 Respiratory Rate 16 06/29/17 08:26 Blood Pressure 114/69 06/29/17 08:26 Pulse Oximetry 97 06/29/17 08:26 Rhythm: Normal Sinus Rhythm Height/Weight/BMI: Weight 59.7 kg - Constitutional Present: no acute distress, average body habitus, cooperative. Absent: cachectic, diaphoretic, disheveled, combative, agitated, somnolent, obtunded - Routine HEENT Exam Head: Present: normocephalic, atraumatic ENT: Present: mucous membranes moist - Routine Respiratory Exam Present: CTA bilaterally. Absent: accessory muscle use, patient mechanically ventilated, dyspnea, decreased breath sounds, prolonged expiratory phase, rales , respiratory distress, rhonchi, stridor, wheezes, crackles, distant breath sounds, diminished air movement Comments: no changes from previous. - Routine Cardiovascular Exam Present: RRR, no murmur Comments: HR in 60's right now. no changes to cardiac exam from previous. no new edema. legs symmetrical and compartments soft b/l in LE's at this time. clinically well perfused in all 4 extremities b/l at this time. - Routine Abdominal Exam Present: soft (X4.), normoactive bowel sounds (X4.), non distended (X4.), non tender (X4.). Absent: tenderness (X4.), distended (X4.), rebound, guarding, firm, rigid, organomegaly, mass Comments: no ascites or jaundice. - Routine Exam Comments: no tenderness over bladder area. no flank pain b/l at this time. - Routine Extremities Exam Absent: cyanosis, edema, joint swelling, pallor, extremity cold to touch - Routine Back/Spine/Pelvis Exam Comments: see above. - Routine Musculoskeletal Exam Musculoskeletal: Present: no joint swelling, normal gait, no erythema, moving extremities well. Absent: joint erythera, joint swelling - Routine Skin Exam Present: intact Comments: no skin changes or new rashes to uncovered areas. no clinical evidence of skin/ soft tissue infection at this time. - Routine Neurological Exam Present: alert, oriented X3 no focal deficits grossly. no changes from previous baseline. no clinical evidence of delerium, elisa, altered mentation/sensorum, confusion, depression, anxiety. affect and cognition unchanged from previous baseline. - Routine Lymphatic Exam Lymphatic: Absent: lymphedema - Routine Psychiatric Exam Present: normal affect, normal thought process, cooperative, good insight, good judgment. Absent: auditory hallucinations, visual hallucinations, tactile hallucinations, depressed, anxious, agitated, paranoid, manic Comments: see the above. Results - Labs CBC & Chem 7: 06/29/17 04:28 06/29/17 04:28 Assessment and Plan DVT Prophylaxis: SCD's, Lovenox GI Prophylaxis: other (PO diet.) Resuscitation Status: Full Code Assessment and Plan: acute sepsis syndrome with klebsiella oxcytoca bacteremia, likely secondary to whipple procedure sinus bradycardia, stable elevated blood pressure without mention of hypertension, improved diarrhea/loose stools over the last 3 days secondary to zosyn. acute hepatitis likely secondary to the above, resolved. mild dilated loops of small bowel on CT scan on admission with no clinical evidence of ileus or small bowel obstruction at this time. mild hypophosphatemia, resolved. leukocytosis and bandemia secondary to the above, resolved. mild dilutional anemia T1DM history of pancreatic cancer s/p whipple procedure 11 years ago -discharge to home today. bp has normalized and HR stable and well tolerated. -cmp's with mild elevated in blood sugar and otherwise unremarkable. cbc's with improving anemia and otherwise unremarkable. GLUBS stable from previous. KUB and upright from yesterday unremarkable. FOBT negative. see previous notes for other testing, discussion and results from this stay. -peripheral smear pending from admission pending. -continue cipro/flagyl orally day 2 started by infectious disease. restart home lantus on discharge. continue to follow GLUBS while here. d/c novolog as outpatient. d/c hypoglycemia protocol on discharge. continue home ASA, digestive enzymes. d/c IV zofran as outpatient. restart home probiotic, calcium/vitamin D, magnesium, multivitamin, co Q- 10 as outpatient. d/c previous supplaments otherwise upon discharge. -Dr. Betancourt of infectious disease and Dr. Bone of surgery consulted. colonoscopy is a consideration as outpatient. ERCP a consideration but can be evaluated further as outpatient. doesn't appear patient will need a PICC line. -further management pending the above. bladder stone -follows with urology as outpatient. -patient instructed by myself today to call and get appointment with his urologist for within the next 3 weeks and he verbalizes understanding. -not an acute issue all other chronic medical issues stable and no changes to plan of care at this time. ppx -continue SCD's and SQ lovenox at DVT prophylaxis dose for DVT ppx while inpatient. -continue PO diet as above for GI prophylaxis. -FULL CODE -dispo---------discharge to home today. see discharge summary and orders for details. - Time spent with patient Time with patient PN: 50 minutes Sepsis Assessment - Evaluation Confirmed Suspected Infection: Yes
--- NOTE | 2017-06-29 15:24 | Discharge Instructions ---
Discharge Plan - Med Rec/Dispo Referrals/Follow Up: Lia Betancourt MD [Physician] - 3 Weeks (Physician's office will call with appointment date and time) Antonio Hirsch DO [Family Provider] - 1 Week (with cbc and cmp done the day before and sent to him. ICD 10 code for this is D64.9. labs on 07/12 at 10:30 at [address] Beckwith [phone] appointment on 07/13 at [address].) Alec Bone MD [Physician] - 2 Weeks (to discuss colonoscopy and whipple procedure.call for appointment [phone] ) [place] Instructions: Leukocytosis (GEN) Additional Instructions: -TO NURSING. please discontinue all lines, IV's and telemetry patient didn't come in on before discharge. -If any issues worsen and/or new ones occur be seen immediately. Prescriptions: New MetroNIDAZOLE [Flagyl] 500 mg PO BIDWM 8 Days #16 tab Ciprofloxacin [Cipro] 500 mg PO Q12HR 8 Days #16 tab Continue Ascorbate Calcium [Vitamin C] 500 mg PO DAILY Digestive 8/L.acidoph/Pectin [Digestive Enzymes Tablet] 1 tab PO BID Aspirin [Lo-Dose Aspirin EC] 81 mg PO DAILY Magnesium 400 mg PO DAILY Insulin Glargine,Hum.rec.anlog [Lantus] 10 - 17 unit SQ HS #0 Cristian Cit/D3/K/Mag Ox/Stron/Bor [Prosteon Tablet] 1 tab PO DAILY #0 Calcium Carbonate/Vitamin D3 [Calcium 600-Vit D3 200 Tablet] 1 tab PO DAILY Ubidecarenone/Vit E Acet [Co Q-10 100 mg Softgel] 100 mg PO DAILY Discontinued Flaxseed Oil 1,000 mg PO DAILY Cranberry Fruit Extract [Cranberry] 405 mg PO DAILY Discharge Instructions/Outpatient Orders: Provider Discharge Instructions Location: Determined By Patient - Disposition 01 Discharged Home, Self-Care
--- NOTE | 2017-06-30 08:15 | Discharge Summary ---
DATE OF ADMISSION 06/23/2017 DATE OF DISCHARGE 06/29/2017 MODE OF ADMISSION Inpatient ATTENDING PHYSICIAN Dr. Hirsch of [facility] ADMITTING PHYSICIAN Dr. Hirsch of [facility] CONSULTING PHYSICIAN Dr. Bone of General Surgery Dr. Betancourt of Infectious Disease ANCILLARY SERVICES DURING THE STAY There were none. DISCHARGE DIAGNOSES 1. Acute sepsis syndrome with Klebsiella oxytoca bacteremia, likely secondary to abdominal cause and Whipple procedure. 2. Mild asymptomatic sinus bradycardia. 3. Elevated blood pressure without mention of hypertension which was improved by discharge. 4. Nausea, vomiting, rigors, chills and fevers secondary to diagnosis #1. 5. Diarrhea/loose stools over the last 3 days secondary to Zosyn. This is improved. 6. Acute hepatitis, likely secondary to diagnosis #1 which has resolved. 7. Mild dilated loops of small bowel on the CT scan of the abdomen and pelvis on admission with no clinical evidence of ileus or small bowel obstruction at this time. 8. Mild hypophosphatemia which has resolved. 9. Leukocytosis and bandemia secondary to the above which has resolved. 10. Mild dilutional anemia which is improving. 11. Type 1 diabetes. 12. Personal history of pancreatic cancer status post Whipple procedure 11 years ago. 13. Bladder stone. DISCHARGE MEDICATIONS 1. Flagyl 500 mg p.o. b.i.d. x 8 more days with no refills. This is a new medicine. 2. Ciprofloxacin 500 mg p.o. q.12h. x 8 more days. This is a new medicine. 3. Vitamin C 500 mg p.o. daily. 4. Digestive Enzyme tablet, 1 tablet p.o. b.i.d. Please note the patient has been resistant and refused any further digestive tablets in the past such as Creon. 5. Aspirin 81 mg p.o. daily. 6. Magnesium 400 mg p.o. daily. 7. Lantus insulin 10-17 units in the evening. The patient has been on this dose for many years and has done well with it himself and thus the reason for the unorthodox dose. 8. Prosteon tablet, 1 tablet p.o. daily. 9. Calcium/vitamin D 600 mg/200 units, one tablet p.o. daily. 10. Vitamin E/CoQ10 tablet, 100 mg p.o. daily. 11. The patient's flaxseed oil with cranberry fruit extract were discontinued. ORDERS TO NURSING FOR DISCHARGE Orders given to nursing to discontinue all lines, IVs and telemetry the patient didn't come in on before discharge. Patient instructed that if any issues worsen and/or new ones occur to be seen immediately. FOLLOW-UPS 1. Follow up with Dr. Hirsch at [facility] in 1 week with a CBC and CMP done the day before and sent to him. 2. Follow up with Dr. Betancourt of Infectious Disease in 3 weeks. 3. Follow up with Dr. Bone of General Surgery in 2 weeks to discuss colonoscopy and further issues regarding his history of the Whipple procedure. CONDITION ON DISCHARGE The patient is discharged to home in stable and good condition. DISCHARGE DIET Diabetic. DISCHARGE ACTIVITY As tolerated. PATIENT INSTRUCTIONS 1. If the patient can't make his appointments and/or access his medications, he will let us know right away. 2. If any issues worsen and/or new ones occur, the patient will be seen immediately. 3. Wound care. This is not applicable. EXPECTED SIGNS/SYMPTOMS 1. The patient's fatigue, weakness, fevers, chills, body aches, nausea, vomiting, abdominal pain should continue to stay resolved. The patient's loose stools should continue to improve. PAIN MANAGEMENT/TREATMENT If the patient has any pain he will let us know right away. NOTIFY PHYSICIAN/RETURN TO CARE ORDERS The patient will return to care immediately if any fevers, chills, rigors, abdominal pain, nausea, vomiting, fatigue, weakness, diarrhea should occur. Numbers were given for contact of Dr. Hirsch during business and after business hours. [employer] PHONE CALL This is not applicable as the patient does not smoke. PENDING LAB RESULTS This will be followed by primary care. PERTINENT LABORATORY DONE DURING THE STAY The patient's white blood cell count coming in was hovering right around 14,000 with a predominance of bands and neutrophils. This had resolved by day 3 of admission and was normal throughout the rest of the stay. Hemoglobin did get as low as 11.5. This was dilutional and it had trended up to 12.9 by discharge. Hematocrit did get as low as 33.8. This trended up with the hemoglobin as well. The bandemia did resolve as did the predominance of neutrophils. The patient's platelets and other indices were unremarkable while here. Coagulation studies on admission were normal including INR and PTT. Sodiums were normal while here. Potassiums were normal while here. Chlorides, acid base status, anion gap, kidney function were all normal while here. Blood sugars generally ran in the 100s with a few outliers in the 200s. Calciums were generally normal while here. Phosphorus did get as low as 1.4 on admission. It was replaced and it was 4.0 by 06/27/2017. Next, magnesiums were normal while here. Iron studies and ferritin were normal while here. Total bilirubin did get as high as 1.9. This was normal throughout the rest of the patient's stay and was 0.4 on discharge. Conjugated and unconjugated bilirubin were normal on admission. Alkaline phosphatase did bump to 134 on admission but was normal throughout the rest of the stay and was normal on 06/29/2017 on discharge. AST did get as high as 444 on admission and trended down to normal by discharge. ALT did get as high as 208. This trended down to normal by discharge as well. Ammonia during this stay was normal. Creatinine kinase was normal on admission. Troponins x 3 were negative on admission. CRP on admit was normal. Protein indices on the patient's complete metabolic panel were generally normal. Ceruloplasmin was unremarkable during the stay. Cytomegalovirus, antinuclear antibody and Dipak-Cormier workup were unremarkable. Lactic acids were normal x 2 on admission. Lipase was normal on admission. TSH was effectively normal on admission. Urinalysis on admission showed a trace amount of ketones and protein but was otherwise unremarkable. This was likely from dehydration. Stool for occult blood was negative, as was stool for white cells during the stay. Stool for Clostridium difficile was negative during the stay, as was the entire stool PCR panel. Salicylates, Tylenol level, alcohol level were normal on admission. Acute hepatitis panel was negative on admission as was the patient's mono screen and HIV-1 and 2 rapid antibody. Blood cultures x 2 were positive for Klebsiella oxytoca as noted above. This was pansensitive except for ampicillin. The patient's peripheral smear with pathology review done on admission showed leukocytosis with predominance of neutrophils and some bands and noted that a systemic infection was most likely the cause and this certainly fit the picture clinically. It was otherwise unremarkable. PERTINENT IMAGING DONE DURING THE STAY CT of the abdomen and pelvis with IV contrast done on 06/23/2017 showed a stable exam without evidence of acute process. It showed a chronically enlarged prostate. There was no evidence of obvious bowel obstruction. There were a few areas of fluid-filled nondilated loops of small bowel which are very nonspecific. As noted, the Whipple procedure was mentioned but there was no evidence of any complications. It was otherwise unremarkable. Chest x-ray, PA and lateral, on the day of admission was normal. A right upper quadrant abdominal ultrasound with Doppler on the day of admission showed no evidence of intrahepatic bile duct dilatation or portal vein thrombosis. The common bile duct was a little enlarged which is likely secondary to his surgery. It didn't show any acute findings in this regard and was otherwise unremarkable. MRCP done on 06/25/2017 showed no evidence of common duct stone or bile duct dilatation that was significant. It again showed the Whipple procedure. There were no masses or filling defects seen in the liver or common bile duct. This was a generally normal exam. Next, KUB and upright done on 06/28/2017 showed the chronic bladder stone but was otherwise unremarkable. Please note EKG done while here as part of the workup for the patient's sinus bradycardia was normal except for the mild sinus bradycardia. HISTORY OF PRESENT ILLNESS AND HOSPITAL COURSE This is a pleasant 76-year-old male known to our clinic. He has a known history of pancreatic cancer diagnosed 11 years ago and he underwent a Whipple procedure at that time. He was in his usual state of health until about 9:00 a.m. on the morning of admission. At that time he started with epigastric and left upper quadrant abdominal pain which was dull. He had nausea and a couple of episodes of normal-appearing vomitus. He had fevers, chills and rigors. He was seen in the emergency room for this. His liver functions tests were noted to be very elevated as noted above. He spiked a fever again in the Emergency Room and became very nauseous and vomited again. For this reason, it was opted to admit him for observation. The patient was admitted and an extensive imaging and laboratory evaluation was undertaken as is noted above. Blood cultures were obtained and the results are as noted above. Given this bacteria is usually part of the gut manoj, it is likely that the bacteria is somehow related to the previous Whipple procedure and possibly a related biliary issue. The patient was put on IV Zosyn and he did quite well. Infectious Disease was consulted as was surgery as noted above. Surgery will follow as an outpatient. Infectious Disease agreed with the above-noted workup and also recommended colonoscopy as an outpatient for which we will have the patient see Dr. Bone. Certainly, Gastroenterology is a consideration as an outpatient , but will talk about this at follow-up. The patient had no more fevers during the stay. He had no more rigors or chills. His white blood cell trended down to normal. Infectious Disease followed the patient as noted above and they recommended transition to the oral medications listed in the above med list. He will finish out a course of these for a total of 14 days. The patient had no more abdominal pain or any other of the symptoms that brought him into the hospital while here. By discharge the patient was feeling quite well in respect to the symptoms that brought him in. Please note that the patient received IV fluids and antibiotics as noted above as well as other sepsis protocol. The patient did have some loose stools while here. Stool workup is as noted above and was unremarkable in regard to the stool PCR, Clostridium difficile, fecal occult blood and stool white blood cells. This was improving by discharge and his stools were formed. They were always normal in appearance. This was likely from the Zosyn. This will be followed as an outpatient. In regard to the patient's elevated transaminases. This elevation was likely secondary to whatever caused the bacteremia. These had trended down to normal by discharge and will be followed as an outpatient as noted above. Please see above for further workup on this as well as far as future plans. Please see the above as well regarding the extensive imaging and laboratory evaluation undertaken for this. In regard to the fluid-filled loops of bowel on admission. This was very nonspecific and essentially a negative CT of the abdomen and pelvis. The patient had no clinical evidence of small bowel obstruction or ileus while here. He was made nothing by mouth initially, but his diet was eventually advanced and he tolerated this well. He was taking a diabetic diet by discharge. His abdominal exam was always very reassuring. The patient did have some sinus bradycardia while here. This was completely asymptomatic and he denied any dizziness, lightheadedness, palpitations or other cardiac symptoms. EKGs were unremarkable except for sinus bradycardia. This can be followed further as an outpatient. Please see the above for the imaging and laboratory evaluation undertaken in regard to this. We will consider an echocardiogram as an outpatient, but it is not likely needed given how well he tolerates this. It appears this is likely chronic in nature as well. The patient did have some elevated blood pressures while here. These, as well, were asymptomatic. He had one dose of IV hydralazine the night before discharge and his blood pressure responded well. His blood pressure stayed down thereafter. This will be followed as noted above as an outpatient. In regard to the patient's dilutional anemia. This was likely secondary to the IV fluids he obtained on admission per sepsis protocol. This was improving by discharge and the rest of his CBCs were unremarkable. In regard to the patient's diabetes. His Lantus was initially held while he was n.p.o. It was gradually reinstated as he started taking oral intake. His blood sugars were generally in the 100s while here with a few outliers in the 200s. He was transitioned back to his dose noted above of the Lantus. He has been controlling his blood sugars on this for many years even though it is a rather sabianist dose. He has a very capable an intelligent gentleman who really stays on top of things and he hasn't had any low blood sugars since I have been taking care of him. For this reason he is maintained on this. The patient does refuse any further prescription digestive enzymes or other medicines for his diabetes and he has been consulted on this in the past. Will continue to follow as is for now and won't be changing anything in this regard. In regard to the patient's history of pancreatic cancer. This doesn't appear to be playing into whatever got him admitted this time. Obviously there is more workup to be done and completed as an outpatient, but will follow as noted above. Please see the above medicines for this as well. The patient does have a known history of a bladder stone. He was following with Urology for this and was actually scheduled for a procedure the day after admission. Obviously, he could not go through with this. He was instructed to call Urology and get an appointment within the next 3 weeks as an outpatient for followup on this and he verbalized understanding. He agrees to do this himself. This was not an acute issue and didn't play a significant role during this hospital stay. All other chronic medical conditions were stable and no other changes to plan of care at this time. The patient was put on SCDs and subcutaneous Lovenox at DVT prophylaxis dose while here. The Lovenox was held briefly for the high blood pressures. The patient was continued on his oral diet as noted above for GI prophylaxis. The patient was a FULL CODE while here. DISPOSITION Discharge today to home in stable and good condition. All the details of this hospitalization could not be completely summarized in this summary, so please refer to the other notes, discussion and results in the electronic medical record for further details. ANAND
== END 2017-06-29 15:50 | disposition home or self-care (01) | DRG 872 ==
LOC: MED 14:25 → ED 14:25 → MED 21:10
PROVIDERS: ADMIT Internal Medicine; ATTEND Internal Medicine